=== PATIENT | female | born 1950 | race African-American/Black ===

== ENCOUNTER → 2018-08-31 | Outpatient (CLI) | payer MEDICARE, OTHER ==
[~2018-08-31] MED LIST: CHOL100013 PO; HYDR1TAB12 PO; IOHEXOL 240 MG/ML 50ML VIAL. PO ONE; IOHEXOL 300 MG/ML 100ML VIAL. IV ONE; METH-364 PO; PANT20TA2 PO
[2018-08-31 09:28] LABS: CREATININE 0.5 mg/dL (0.6-1.0); GFR 148.5
--- NOTE | 2018-08-31 11:02 | RAD ---
Examination: CT of the abdomen pelvis with oral and IV contrast HISTORY: History of intra-abdominal adhesions, bowel obstruction COMPARISON: None available Technique: Axial CT images of the abdomen pelvis were performed with oral and IV contrast. Coronal and sagittal reformats are performed Exposure: One or more of the following individualized dose reduction techniques were utilized for this examination: 1. Automated exposure control 2. Adjustment of the mA and/or kV according to patient size 3. Use of iterative reconstruction technique FINDINGS: The bibasilar lungs are clear. No evidence of free air identified in the abdomen. The visualized liver, spleen, adrenals grossly appears unremarkable. The gallbladder is mildly distended. The stomach is mildly distended. The visualized pancreas grossly appears unremarkable. The small bowel is nondilated. Feces and gas noted in the colon. Moderate-sized sigmoid colon diverticulum or postsurgical changes identified in the sigmoid colon. Multiple colonic diverticulosis identified. The urinary bladder is mildly distended. The bilateral kidneys enhance symmetrically. Cystic structures identified in the left kidney with the largest measuring 1.2 cm likely cyst. Mild aortic atherosclerosis. Moderate degenerative changes lumbar spine. Mild anterolisthesis of L4 on L5. IMPRESSION: 1. No acute intra-abdominal findings. 2. . Sigmoid colon diverticulosis. There is a moderate size sigmoid colon diverticulum or postsurgical changes identified at the site of prior surgery. Electronically signed by: Puma Alvarez MD (08/31/2018 10:59 AM) [place] [id number]
== END | disposition home or self-care (01) ==
LOC: CT 11:15
PROVIDERS: ATTEND Specialist
DX: K57.30 Diverticulosis of large intestine without perforation or abscess without bleeding (principal); M47.896 Other spondylosis, lumbar region; M43.16 Spondylolisthesis, lumbar region; I70.0 Atherosclerosis of aorta; N28.1 Cyst of kidney, acquired; K82.8 Other specified diseases of gallbladder; K31.89 Other diseases of stomach and duodenum
CPT/HCPCS: 36415; 74177; 82565; 84520; Q9966; Q9967

== ENCOUNTER 2018-09-06 07:30 | Inpatient (IN) | payer MEDICARE, OTHER ==
--- NOTE | 2018-09-05 13:08 | HP ---
ADMIT DATE: 09/06/2018 HISTORY OF PRESENT ILLNESS: The patient is admitted electively to the hospital for abdominal surgery for lysis of adhesions as she has had recurrent bowel obstructions. The history shows she has had recurrent bowel obstructions for years, about 1-2 per year, which required admission to the hospital. She has not had surgery for this, but this was more frequent in 2018 and she went in to the hospital 3-4 times for this. She wished to have this taken care of. In the past, she has had only small-bowel obstruction, which was most likely due to adhesions. This area of the colon surgery appears to be unremarkable and there is no evidence of colon problems. She has also had colonoscopy, which showed no colon problems. PAST MEDICAL HISTORY: Shows normal childhood diseases. She does not have heart disease, high blood pressure, diabetes or TB. She does take medicine for which she says is hyperthyroidism. She has taken this for years and has no difficulty. ALLERGIES: She has no allergies. PAST SURGICAL HISTORY: Surgical history does show that about 20 years ago, she had a perforated diverticulum, which had a laparotomy, resection of the involved bowel and later closure of the colostomy that was created at the initial surgery. Since that time, she has been doing well, except for the history of present illness with recurrent bowel obstructions of small bowel, which resolve spontaneously each time. She has had 2 knee replacements and many years ago, had a hysterectomy. FAMILY HISTORY: Noncontributory. She does have one child. SOCIAL HISTORY: Shows that she does smoke about half a pack of cigarettes per day, drinks socially and does use some marijuana. She does not use cocaine or other illicit drugs. REVIEW OF SYSTEMS: Negative, except for the knee pain which she has when it gets cold, but otherwise, is doing relatively well with no problems. She has had recurrent hospitalizations for small-bowel obstruction secondary to adhesions; she had 3-4 in 2018. PHYSICAL EXAMINATION: GENERAL: Shows an alert female, in no acute distress. HEAD, EARS, EYES, NOSE AND THROAT: Grossly normal. She does not have exophthalmus or other problems. NECK: The thyroid did not appear unremarkable. CHEST: Clear bilaterally to auscultation. HEART: Had a rate of 72 beats per minute and was regular and had a systolic murmur heard at the aortic area, about a 2/6. I do not hear diastolic flow. ABDOMEN: Negative, with no abdominal tenderness or pain and no evidence of herniations. She also has a scar of midline surgery and the scar of the colostomy in the left abdomen. IMPRESSION: 1. Degenerative arthritis, treated with bilateral knee replacements. 2. Post hysterectomy. 3. Status post bowel resection for perforated bowel. 4. Intermittent small-bowel obstructions. 5. Hyperthyroidism. KARLO MANCIA MD DR: ORI/chula JOB#: [id number] / [id number] JAYSON
[~2018-09-06] VITALS: Ht 177.8 cm; Wt 66.4 kg
[~2018-09-06 07:30] MED LIST changes: -HYDR1TAB12 PO; +HYDR1TAB13 PO; +HYDROmorphone 2 MG/ML VIAL IV PRN; -IOHEXOL 240 MG/ML 50ML VIAL. PO ONE; -IOHEXOL 300 MG/ML 100ML VIAL. IV ONE; +IV RINGERS,LACTATED 1000ML 1,000 ML IV SCH; +LIDOCAINE 1% PF 2 ML VIAL. ID PRN; +MORPHINE SULFATE 4 MG/ML VIAL. IV PRN; +ONDANSETRON PF 4 MG/2 ML VIAL. IV PRN; +PROCHLORPERAZINE 10 MG/2 ML VIAL. IV PRN; +fentaNYL PF VIAL 100 MCG/2 ML VIAL IV PRN
[2018-09-06 08:09] LABS: BASO % 0 % (0-3); EOS # 0.1 x10^3/uL (0.0-0.7); EOS % 1 % (0-3); HEMOGLOBIN 13.7 g/dL (12.0-15.5); LYMPH # 1.3 x10^3/uL (1.0-4.8); LYMPH % 16 % (24-48); MEAN CORPUSCULAR HEMOGLOBIN 28 pg (25-35); MEAN CORPUSCULAR HGB CONC 33 g/dL (31-37); MEAN CORPUSCULAR VOLUME 85 fL (79-100); MONO % 12 % (0-9); NEUT # 6.1 x10^3uL (1.8-7.7); NEUT % 71 % (31-73); PLATELET COUNT 180 x10^3/uL (140-400); RED BLOOD COUNT 4.93 x10^6/uL (3.50-5.40); RED CELL DISTRIBUTION WIDTH 15.2 % (11.5-14.5); WHITE BLOOD COUNT 8.5 x10^3/uL (4.0-11.0)
[2018-09-06 08:17] LABS: CALCIUM 8.4 mg/dL (8.5-10.1); CREATININE 0.6 mg/dL (0.6-1.0); GFR 120.3; POTASSIUM 3.3 mmol/L (3.5-5.1)
[2018-09-06] MEDS ORDERED: ROCURONIUM 50 MG/5 ML VIAL. ONE ×2 (08:22→10:49)
[2018-09-06] MEDS ORDERED: ONDANSETRON PF 4 MG/2 ML VIAL. ONE (08:22)
[2018-09-06] MEDS ORDERED: PROPOFOL 20 ML IV ONE (08:22)
[2018-09-06] MEDS ORDERED: LIDOCAINE 2% PF 5 ML VIAL. ONE (08:22)
[2018-09-06] MEDS ORDERED: DEXAMETHASONE SOD PHOS 20 MG/5 ML VIAL. ONE (08:22)
[2018-09-06 08:23] LABS: ALBUMIN 3.4 g/dL (3.4-5.0); ALBUMIN/GLOBULIN RATIO 1.1 (1.0-1.7); TOTAL BILIRUBIN 1.4 mg/dL (0.2-1.0); TOTAL PROTEIN 6.6 g/dL (6.4-8.2)
[2018-09-06] MEDS ORDERED: fentaNYL PF VIAL 100 MCG/2 ML VIAL ONE (08:23)
[2018-09-06 08:27] LABS: PROTHROMBIN TIME PATIENT 13.3 SEC (11.7-14.0)
[2018-09-06] MEDS ORDERED: MIDAZOLAM HCL/PF 2 MG/2 ML VIAL. ONE (08:30)
[2018-09-06] MEDS ORDERED: BUPIVACAINE-EPI 0.25%-1:200000 MPF 30 ML VIAL. ONE (09:26)
--- NOTE | 2018-09-06 09:27 | PDOC ---
SURGICAL PROGRESS NOTE Subjective Op Note: Surgeon.....................................Dong Pre op diag................................SBO with adhesions Post op diag..............................same with bowel perforation Anesthesia...............................general Procedure................................exp lap with enterolysis.and suture multiple perforations of bowel. Blood loss................................350cc Fluids.......................................see anesthesia sheet Drains......................................Large Bleak drain left abd and pelvis Condition.................................satisfactory Vital Signs Vital Signs Date Time Temp Pulse Resp B/P (MAP) Pulse Ox O2 Delivery O2 Flow Rate FiO2 09/06/18 08:07 98.5 68 20 156/79 96 Room Air 98.5 Labs Laboratory Tests Test 09/06/18 07:55 White Blood Count 8.5 x10^3/uL (4.0-11.0) Red Blood Count 4.93 x10^6/uL (3.50-5.40) Hemoglobin 13.7 g/dL (12.0-15.5) Hematocrit 42.0 % (36.0-47.0) Mean Corpuscular Volume 85 fL (79-100) Mean Corpuscular Hemoglobin 28 pg (25-35) Mean Corpuscular Hemoglobin Concent 33 g/dL (31-37) Red Cell Distribution Width 15.2 % (11.5-14.5) Platelet Count 180 x10^3/uL (140-400) Neutrophils (%) (Auto) 71 % (31-73) Lymphocytes (%) (Auto) 16 % (24-48) Monocytes (%) (Auto) 12 % (0-9) Eosinophils (%) (Auto) 1 % (0-3) Basophils (%) (Auto) 0 % (0-3) Neutrophils # (Auto) 6.1 x10^3uL (1.8-7.7) Lymphocytes # (Auto) 1.3 x10^3/uL (1.0-4.8) Monocytes # (Auto) 1.0 x10^3/uL (0.0-1.1) Eosinophils # (Auto) 0.1 x10^3/uL (0.0-0.7) Basophils # (Auto) 0.0 x10^3/uL (0.0-0.2) Prothrombin Time 13.3 SEC (11.7-14.0) Prothromb Time International Ratio 1.0 (0.8-1.1) Sodium Level 143 mmol/L (136-145) Potassium Level 3.3 mmol/L (3.5-5.1) Chloride Level 105 mmol/L (98-107) Carbon Dioxide Level 29 mmol/L (21-32) Anion Gap 9 (6-14) Blood Urea Nitrogen 8 mg/dL (7-20) Creatinine 0.6 mg/dL (0.6-1.0) Estimated GFR (Cockcroft-Gault) 120.3 BUN/Creatinine Ratio 13 (6-20) Glucose Level 95 mg/dL (70-99) Calcium Level 8.4 mg/dL (8.5-10.1) Total Bilirubin 1.4 mg/dL (0.2-1.0) Aspartate Amino Transf (AST/SGOT) 11 U/L (15-37) Alanine Aminotransferase (ALT/SGPT) 22 U/L (14-59) Alkaline Phosphatase 72 U/L (46-116) Total Protein 6.6 g/dL (6.4-8.2) Albumin 3.4 g/dL (3.4-5.0) Albumin/Globulin Ratio 1.1 (1.0-1.7) Laboratory Tests Test 09/06/18 07:55 White Blood Count 8.5 x10^3/uL (4.0-11.0) Red Blood Count 4.93 x10^6/uL (3.50-5.40) Hemoglobin 13.7 g/dL (12.0-15.5) Hematocrit 42.0 % (36.0-47.0) Mean Corpuscular Volume 85 fL (79-100) Mean Corpuscular Hemoglobin 28 pg (25-35) Mean Corpuscular Hemoglobin Concent 33 g/dL (31-37) Red Cell Distribution Width 15.2 % (11.5-14.5) Platelet Count 180 x10^3/uL (140-400) Neutrophils (%) (Auto) 71 % (31-73) Lymphocytes (%) (Auto) 16 % (24-48) Monocytes (%) (Auto) 12 % (0-9) Eosinophils (%) (Auto) 1 % (0-3) Basophils (%) (Auto) 0 % (0-3) Neutrophils # (Auto) 6.1 x10^3uL (1.8-7.7) Lymphocytes # (Auto) 1.3 x10^3/uL (1.0-4.8) Monocytes # (Auto) 1.0 x10^3/uL (0.0-1.1) Eosinophils # (Auto) 0.1 x10^3/uL (0.0-0.7) Basophils # (Auto) 0.0 x10^3/uL (0.0-0.2) Prothrombin Time 13.3 SEC (11.7-14.0) Prothromb Time International Ratio 1.0 (0.8-1.1) Sodium Level 143 mmol/L (136-145) Potassium Level 3.3 mmol/L (3.5-5.1) Chloride Level 105 mmol/L (98-107) Carbon Dioxide Level 29 mmol/L (21-32) Anion Gap 9 (6-14) Blood Urea Nitrogen 8 mg/dL (7-20) Creatinine 0.6 mg/dL (0.6-1.0) Estimated GFR (Cockcroft-Gault) 120.3 BUN/Creatinine Ratio 13 (6-20) Glucose Level 95 mg/dL (70-99) Calcium Level 8.4 mg/dL (8.5-10.1) Total Bilirubin 1.4 mg/dL (0.2-1.0) Aspartate Amino Transf (AST/SGOT) 11 U/L (15-37) Alanine Aminotransferase (ALT/SGPT) 22 U/L (14-59) Alkaline Phosphatase 72 U/L (46-116) Total Protein 6.6 g/dL (6.4-8.2) Albumin 3.4 g/dL (3.4-5.0) Albumin/Globulin Ratio 1.1 (1.0-1.7) KARLO MANCIA MD Sep 06, 2018 09:27
[2018-09-06] MEDS: NORMAL SALINE 35 ML, fentaNYL PF VIAL 250 MCG, ROPIVacaine 0.5% PF 10 ML in EPIDURAL 50 TV EPID PRN ×3 (10:20→19:58)
[2018-09-06] MEDS ORDERED: GLYCOPYRROLATE 1 MG/5 ML VIAL. ONE (11:19)
[2018-09-06] MEDS ORDERED: NEOSTIGMINE 10 MG/10 ML VIAL. ONE (11:19)
[2018-09-06] MEDS ORDERED: ROCURONIUM 100 MG/10 ML VIAL. ONE (11:51)
[2018-09-06] MEDS ORDERED: ceFAZolin SODIUM 1 GM VIAL ONE ×2 (13:27→13:28)
[2018-09-06] MEDS ORDERED: PHENYLEPHRINE 10 MG/ML VIAL. ONE (13:52)
[2018-09-06] MEDS ORDERED: SEVOFLURANE > 120 MINUTES. IH ONE (15:16)
[2018-09-06] MEDS ORDERED: ONDANSETRON PF 4 MG/2 ML VIAL. IV PRN (15:45)
[2018-09-06] MEDS ORDERED: 0.9 % SODIUM CHLORIDE 10 ML DISP.SYRIN. IV PRN (15:45)
[2018-09-06] MEDS: fentaNYL PF VIAL 100 MCG/2 ML VIAL IV PRN ×3 (16:08→17:22)
[2018-09-06] MEDS: POTASSIUM CL 20MEQ-0.45% NACL 1,000 ML IV SCH (18:27)
[2018-09-06] MEDS: ceFAZolin SODIUM 1 GM in IV DEXTROSE 5% 50 ML IV SCH (18:27)
[2018-09-06 19:00] VITALS: BP 134/74
[2018-09-06] MEDS: FAMOTIDINE 20 MG/2 ML VIAL IVP SCH (20:40)
[2018-09-06 22:24] VITALS: BP 126/69
[2018-09-07] MEDS: NORMAL SALINE 35 ML, fentaNYL PF VIAL 250 MCG, ROPIVacaine 0.5% PF 10 ML in EPIDURAL 50 TV EPID PRN ×4 (00:43→20:22)
[2018-09-07] MEDS: ceFAZolin SODIUM 1 GM in IV DEXTROSE 5% 50 ML IV SCH ×3 (01:37→17:32)
[2018-09-07 03:00] VITALS: BP 116/68
[2018-09-07 03:56] LABS: BASO % 0 % (0-3); EOS % 0 % (0-3); HEMATOCRIT 40.3 % (36.0-47.0); HEMOGLOBIN 13.2 g/dL (12.0-15.5); LYMPH # 0.5 x10^3/uL (1.0-4.8); LYMPH % 6 % (24-48); MEAN CORPUSCULAR HEMOGLOBIN 28 pg (25-35); MEAN CORPUSCULAR HGB CONC 33 g/dL (31-37); MEAN CORPUSCULAR VOLUME 84 fL (79-100); MONO # 0.9 x10^3/uL (0.0-1.1); MONO % 10 % (0-9); NEUT # 7.9 x10^3uL (1.8-7.7); NEUT % 84 % (31-73); PLATELET COUNT 183 x10^3/uL (140-400); RED BLOOD COUNT 4.77 x10^6/uL (3.50-5.40); RED CELL DISTRIBUTION WIDTH 15.6 % (11.5-14.5); WHITE BLOOD COUNT 9.4 x10^3/uL (4.0-11.0)
[2018-09-07 04:19] LABS: ALBUMIN 2.5 g/dL (3.4-5.0); ALBUMIN/GLOBULIN RATIO 0.9 (1.0-1.7); CALCIUM 7.2 mg/dL (8.5-10.1); CREATININE 0.6 mg/dL (0.6-1.0); GFR 120.3; POTASSIUM 4.3 mmol/L (3.5-5.1); TOTAL BILIRUBIN 1.4 mg/dL (0.2-1.0); TOTAL PROTEIN 5.3 g/dL (6.4-8.2)
[2018-09-07] MEDS: POTASSIUM CL 20MEQ-0.45% NACL 1,000 ML IV SCH ×2 (04:28→15:48)
[2018-09-07 07:00] VITALS: BP 130/89
[2018-09-07] MEDS: FAMOTIDINE 20 MG/2 ML VIAL IVP SCH ×2 (09:23→20:35)
--- NOTE | 2018-09-07 10:04 | PDOC ---
SURGICAL PROGRESS NOTE Subjective POD#1 Pt is doing well. Pt is laying in bed upon interview. Pt is doing well with much less than the expected post op pain. Pt denies flatus or bm. Pt is hungry and has been asking for ice cubes. Vs are surprisingly normal as is the wbc. Wound dressing in place and dry and she has a little discomfort from the NG. Will ambulate and remove NG. May remove hawkins per her request in 24 hours. Continue to support and await GI function. Vital Signs Vital Signs Date Time Temp Pulse Resp B/P (MAP) Pulse Ox O2 Delivery O2 Flow Rate FiO2 09/07/18 08:00 Room Air 09/07/18 07:00 98.9 76 18 130/89 (103) 98 98.9 09/07/18 05:19 2.0 I&O Intake and Output 09/07/18 06:59 Intake Total 2850 ml Output Total 2860 ml Balance -10 ml Intake Oral 0 ml IV Total 2850 ml Output Urine Total 2350 ml Gastric Drainage Total 10 ml Drainage Total 100 ml Estimated Blood Loss 400 ml General: Alert, Oriented X3, Cooperative, No acute distress Abdomen: Other (Tenderness in b/l abdomen, 5/10, crampy) Labs Laboratory Tests Test 09/06/18 07:55 09/07/18 03:10 White Blood Count 8.5 x10^3/uL (4.0-11.0) 9.4 x10^3/uL (4.0-11.0) Red Blood Count 4.93 x10^6/uL (3.50-5.40) 4.77 x10^6/uL (3.50-5.40) Hemoglobin 13.7 g/dL (12.0-15.5) 13.2 g/dL (12.0-15.5) Hematocrit 42.0 % (36.0-47.0) 40.3 % (36.0-47.0) Mean Corpuscular Volume 85 fL (79-100) 84 fL (79-100) Mean Corpuscular Hemoglobin 28 pg (25-35) 28 pg (25-35) Mean Corpuscular Hemoglobin Concent 33 g/dL (31-37) 33 g/dL (31-37) Red Cell Distribution Width 15.2 % (11.5-14.5) 15.6 % (11.5-14.5) Platelet Count 180 x10^3/uL (140-400) 183 x10^3/uL (140-400) Neutrophils (%) (Auto) 71 % (31-73) 84 % (31-73) Lymphocytes (%) (Auto) 16 % (24-48) 6 % (24-48) Monocytes (%) (Auto) 12 % (0-9) 10 % (0-9) Eosinophils (%) (Auto) 1 % (0-3) 0 % (0-3) Basophils (%) (Auto) 0 % (0-3) 0 % (0-3) Neutrophils # (Auto) 6.1 x10^3uL (1.8-7.7) 7.9 x10^3uL (1.8-7.7) Lymphocytes # (Auto) 1.3 x10^3/uL (1.0-4.8) 0.5 x10^3/uL (1.0-4.8) Monocytes # (Auto) 1.0 x10^3/uL (0.0-1.1) 0.9 x10^3/uL (0.0-1.1) Eosinophils # (Auto) 0.1 x10^3/uL (0.0-0.7) 0.0 x10^3/uL (0.0-0.7) Basophils # (Auto) 0.0 x10^3/uL (0.0-0.2) 0.0 x10^3/uL (0.0-0.2) Prothrombin Time 13.3 SEC (11.7-14.0) Prothromb Time International Ratio 1.0 (0.8-1.1) Sodium Level 143 mmol/L (136-145) 141 mmol/L (136-145) Potassium Level 3.3 mmol/L (3.5-5.1) 4.3 mmol/L (3.5-5.1) Chloride Level 105 mmol/L (98-107) 106 mmol/L (98-107) Carbon Dioxide Level 29 mmol/L (21-32) 27 mmol/L (21-32) Anion Gap 9 (6-14) 8 (6-14) Blood Urea Nitrogen 8 mg/dL (7-20) 10 mg/dL (7-20) Creatinine 0.6 mg/dL (0.6-1.0) 0.6 mg/dL (0.6-1.0) Estimated GFR (Cockcroft-Gault) 120.3 120.3 BUN/Creatinine Ratio 13 (6-20) 17 (6-20) Glucose Level 95 mg/dL (70-99) 150 mg/dL (70-99) Calcium Level 8.4 mg/dL (8.5-10.1) 7.2 mg/dL (8.5-10.1) Total Bilirubin 1.4 mg/dL (0.2-1.0) 1.4 mg/dL (0.2-1.0) Aspartate Amino Transf (AST/SGOT) 11 U/L (15-37) 14 U/L (15-37) Alanine Aminotransferase (ALT/SGPT) 22 U/L (14-59) 17 U/L (14-59) Alkaline Phosphatase 72 U/L (46-116) 51 U/L (46-116) Total Protein 6.6 g/dL (6.4-8.2) 5.3 g/dL (6.4-8.2) Albumin 3.4 g/dL (3.4-5.0) 2.5 g/dL (3.4-5.0) Albumin/Globulin Ratio 1.1 (1.0-1.7) 0.9 (1.0-1.7) Laboratory Tests Test 09/07/18 03:10 White Blood Count 9.4 x10^3/uL (4.0-11.0) Red Blood Count 4.77 x10^6/uL (3.50-5.40) Hemoglobin 13.2 g/dL (12.0-15.5) Hematocrit 40.3 % (36.0-47.0) Mean Corpuscular Volume 84 fL (79-100) Mean Corpuscular Hemoglobin 28 pg (25-35) Mean Corpuscular Hemoglobin Concent 33 g/dL (31-37) Red Cell Distribution Width 15.6 % (11.5-14.5) Platelet Count 183 x10^3/uL (140-400) Neutrophils (%) (Auto) 84 % (31-73) Lymphocytes (%) (Auto) 6 % (24-48) Monocytes (%) (Auto) 10 % (0-9) Eosinophils (%) (Auto) 0 % (0-3) Basophils (%) (Auto) 0 % (0-3) Neutrophils # (Auto) 7.9 x10^3uL (1.8-7.7) Lymphocytes # (Auto) 0.5 x10^3/uL (1.0-4.8) Monocytes # (Auto) 0.9 x10^3/uL (0.0-1.1) Eosinophils # (Auto) 0.0 x10^3/uL (0.0-0.7) Basophils # (Auto) 0.0 x10^3/uL (0.0-0.2) Sodium Level 141 mmol/L (136-145) Potassium Level 4.3 mmol/L (3.5-5.1) Chloride Level 106 mmol/L (98-107) Carbon Dioxide Level 27 mmol/L (21-32) Anion Gap 8 (6-14) Blood Urea Nitrogen 10 mg/dL (7-20) Creatinine 0.6 mg/dL (0.6-1.0) Estimated GFR (Cockcroft-Gault) 120.3 BUN/Creatinine Ratio 17 (6-20) Glucose Level 150 mg/dL (70-99) Calcium Level 7.2 mg/dL (8.5-10.1) Total Bilirubin 1.4 mg/dL (0.2-1.0) Aspartate Amino Transf (AST/SGOT) 14 U/L (15-37) Alanine Aminotransferase (ALT/SGPT) 17 U/L (14-59) Alkaline Phosphatase 51 U/L (46-116) Total Protein 5.3 g/dL (6.4-8.2) Albumin 2.5 g/dL (3.4-5.0) Albumin/Globulin Ratio 0.9 (1.0-1.7) KARLO MANCIA MD Sep 07, 2018 10:04
[2018-09-07 11:00] VITALS: BP 137/74
--- NOTE | 2018-09-07 13:07 | NUR ---
SS following for discharge planning. SS reviewed pt chart. Pt is from home and currently on room air. No discharge needs noted at this time. SS will continue to follow for pending discharge needs.
[2018-09-07 15:00] VITALS: BP 149/79
[2018-09-07 19:00] VITALS: BP 139/82
[2018-09-07 23:00] VITALS: BP 136/73
[2018-09-08] MEDS: NORMAL SALINE 35 ML, fentaNYL PF VIAL 250 MCG, ROPIVacaine 0.5% PF 10 ML in EPIDURAL 50 TV EPID PRN ×5 (01:15→20:20)
[2018-09-08 02:46] VITALS: BP 147/79
[2018-09-08] MEDS: POTASSIUM CL 20MEQ-0.45% NACL 1,000 ML IV SCH ×4 (02:50→20:28)
[2018-09-08 06:03] LABS: BASO % 0 % (0-3); EOS % 0 % (0-3); HEMATOCRIT 39.3 % (36.0-47.0); HEMOGLOBIN 12.9 g/dL (12.0-15.5); LYMPH # 1.5 x10^3/uL (1.0-4.8); LYMPH % 13 % (24-48); MEAN CORPUSCULAR HEMOGLOBIN 28 pg (25-35); MEAN CORPUSCULAR HGB CONC 33 g/dL (31-37); MEAN CORPUSCULAR VOLUME 86 fL (79-100); MONO # 1.3 x10^3/uL (0.0-1.1); MONO % 10 % (0-9); NEUT # 9.5 x10^3uL (1.8-7.7); NEUT % 77 % (31-73); PLATELET COUNT 176 x10^3/uL (140-400); RED BLOOD COUNT 4.57 x10^6/uL (3.50-5.40); RED CELL DISTRIBUTION WIDTH 15.4 % (11.5-14.5); WHITE BLOOD COUNT 12.3 x10^3/uL (4.0-11.0)
[2018-09-08 06:09] LABS: ALBUMIN 2.7 g/dL (3.4-5.0); ALBUMIN/GLOBULIN RATIO 0.8 (1.0-1.7); CREATININE 0.6 mg/dL (0.6-1.0); GFR 120.3; POTASSIUM 4.2 mmol/L (3.5-5.1); TOTAL BILIRUBIN 1.7 mg/dL (0.2-1.0); TOTAL PROTEIN 6.1 g/dL (6.4-8.2)
[2018-09-08 07:00] VITALS: BP 127/69
--- NOTE | 2018-09-08 09:27 | PDOC ---
SURGICAL PROGRESS NOTE Subjective POD#2 Pt is doing well with much less than the expected post op pain. Pt admits flatus, denies bm. Vs are surprisingly normal. WBC is increased today to 12.9. Wound dressing is clean, dry and intact. NG tube was removed, and banding was fit correctly. Mcdonough was removed. Continue to support. Will hold heparin as am reluctant with epidural and she is getting up and walking well. Will plan to start liquids 09/09/2018 if she continues to have GI function. Vital Signs Vital Signs Date Time Temp Pulse Resp B/P (MAP) Pulse Ox O2 Delivery O2 Flow Rate FiO2 09/08/18 07:00 98.7 74 16 127/69 (88) 94 Room Air 98.7 I&O Intake and Output 09/08/18 06:59 Output Total 690 ml Balance -690 ml Output Urine Total 600 ml Gastric Drainage Total 0 ml Drainage Total 90 ml # Voids 5 Labs Laboratory Tests Test 09/07/18 03:10 09/08/18 05:30 White Blood Count 9.4 x10^3/uL (4.0-11.0) 12.3 x10^3/uL (4.0-11.0) Red Blood Count 4.77 x10^6/uL (3.50-5.40) 4.57 x10^6/uL (3.50-5.40) Hemoglobin 13.2 g/dL (12.0-15.5) 12.9 g/dL (12.0-15.5) Hematocrit 40.3 % (36.0-47.0) 39.3 % (36.0-47.0) Mean Corpuscular Volume 84 fL (79-100) 86 fL (79-100) Mean Corpuscular Hemoglobin 28 pg (25-35) 28 pg (25-35) Mean Corpuscular Hemoglobin Concent 33 g/dL (31-37) 33 g/dL (31-37) Red Cell Distribution Width 15.6 % (11.5-14.5) 15.4 % (11.5-14.5) Platelet Count 183 x10^3/uL (140-400) 176 x10^3/uL (140-400) Neutrophils (%) (Auto) 84 % (31-73) 77 % (31-73) Lymphocytes (%) (Auto) 6 % (24-48) 13 % (24-48) Monocytes (%) (Auto) 10 % (0-9) 10 % (0-9) Eosinophils (%) (Auto) 0 % (0-3) 0 % (0-3) Basophils (%) (Auto) 0 % (0-3) 0 % (0-3) Neutrophils # (Auto) 7.9 x10^3uL (1.8-7.7) 9.5 x10^3uL (1.8-7.7) Lymphocytes # (Auto) 0.5 x10^3/uL (1.0-4.8) 1.5 x10^3/uL (1.0-4.8) Monocytes # (Auto) 0.9 x10^3/uL (0.0-1.1) 1.3 x10^3/uL (0.0-1.1) Eosinophils # (Auto) 0.0 x10^3/uL (0.0-0.7) 0.0 x10^3/uL (0.0-0.7) Basophils # (Auto) 0.0 x10^3/uL (0.0-0.2) 0.0 x10^3/uL (0.0-0.2) Sodium Level 141 mmol/L (136-145) 140 mmol/L (136-145) Potassium Level 4.3 mmol/L (3.5-5.1) 4.2 mmol/L (3.5-5.1) Chloride Level 106 mmol/L (98-107) 104 mmol/L (98-107) Carbon Dioxide Level 27 mmol/L (21-32) 24 mmol/L (21-32) Anion Gap 8 (6-14) 12 (6-14) Blood Urea Nitrogen 10 mg/dL (7-20) 9 mg/dL (7-20) Creatinine 0.6 mg/dL (0.6-1.0) 0.6 mg/dL (0.6-1.0) Estimated GFR (Cockcroft-Gault) 120.3 120.3 BUN/Creatinine Ratio 17 (6-20) 15 (6-20) Glucose Level 150 mg/dL (70-99) 76 mg/dL (70-99) Calcium Level 7.2 mg/dL (8.5-10.1) 8.0 mg/dL (8.5-10.1) Total Bilirubin 1.4 mg/dL (0.2-1.0) 1.7 mg/dL (0.2-1.0) Aspartate Amino Transf (AST/SGOT) 14 U/L (15-37) 13 U/L (15-37) Alanine Aminotransferase (ALT/SGPT) 17 U/L (14-59) 16 U/L (14-59) Alkaline Phosphatase 51 U/L (46-116) 58 U/L (46-116) Total Protein 5.3 g/dL (6.4-8.2) 6.1 g/dL (6.4-8.2) Albumin 2.5 g/dL (3.4-5.0) 2.7 g/dL (3.4-5.0) Albumin/Globulin Ratio 0.9 (1.0-1.7) 0.8 (1.0-1.7) Laboratory Tests Test 09/08/18 05:30 White Blood Count 12.3 x10^3/uL (4.0-11.0) Red Blood Count 4.57 x10^6/uL (3.50-5.40) Hemoglobin 12.9 g/dL (12.0-15.5) Hematocrit 39.3 % (36.0-47.0) Mean Corpuscular Volume 86 fL (79-100) Mean Corpuscular Hemoglobin 28 pg (25-35) Mean Corpuscular Hemoglobin Concent 33 g/dL (31-37) Red Cell Distribution Width 15.4 % (11.5-14.5) Platelet Count 176 x10^3/uL (140-400) Neutrophils (%) (Auto) 77 % (31-73) Lymphocytes (%) (Auto) 13 % (24-48) Monocytes (%) (Auto) 10 % (0-9) Eosinophils (%) (Auto) 0 % (0-3) Basophils (%) (Auto) 0 % (0-3) Neutrophils # (Auto) 9.5 x10^3uL (1.8-7.7) Lymphocytes # (Auto) 1.5 x10^3/uL (1.0-4.8) Monocytes # (Auto) 1.3 x10^3/uL (0.0-1.1) Eosinophils # (Auto) 0.0 x10^3/uL (0.0-0.7) Basophils # (Auto) 0.0 x10^3/uL (0.0-0.2) Sodium Level 140 mmol/L (136-145) Potassium Level 4.2 mmol/L (3.5-5.1) Chloride Level 104 mmol/L (98-107) Carbon Dioxide Level 24 mmol/L (21-32) Anion Gap 12 (6-14) Blood Urea Nitrogen 9 mg/dL (7-20) Creatinine 0.6 mg/dL (0.6-1.0) Estimated GFR (Cockcroft-Gault) 120.3 BUN/Creatinine Ratio 15 (6-20) Glucose Level 76 mg/dL (70-99) Calcium Level 8.0 mg/dL (8.5-10.1) Total Bilirubin 1.7 mg/dL (0.2-1.0) Aspartate Amino Transf (AST/SGOT) 13 U/L (15-37) Alanine Aminotransferase (ALT/SGPT) 16 U/L (14-59) Alkaline Phosphatase 58 U/L (46-116) Total Protein 6.1 g/dL (6.4-8.2) Albumin 2.7 g/dL (3.4-5.0) Albumin/Globulin Ratio 0.8 (1.0-1.7) KARLO MANCIA MD Sep 08, 2018 09:27
[2018-09-08] MEDS: FAMOTIDINE 20 MG/2 ML VIAL IVP SCH ×2 (10:19→20:26)
[2018-09-08 11:00] VITALS: BP 147/77
--- NOTE | 2018-09-08 13:24 | OP ---
DATE OF SURGERY: SURGEON: Alex Mancia MD PREOPERATIVE DIAGNOSIS: Recurrent small-bowel obstruction. POSTOPERATIVE DIAGNOSES: Recurrent small-bowel obstruction with massive intra-abdominal adhesions and perforated small bowel. ANESTHESIA: General. PROCEDURE: Exploratory laparotomy with massive enterolysis and suture of multiple small bowel perforations. TECHNIQUE: The patient was properly prepped and draped in routine fashion. She had had multiple small bowel episodes for years and the last 2-3 were worse, and she has been in the hospital about 3-4 times in the last 12 months for bowel obstructions, and she decided to have this removed. She has had numerous CT scans, all of which showed a lot of adhesions in the abdomen, mostly in the pelvis and multiple times it shows small bowel obstructions along with a KUB. As such, after she was properly prepped and draped in routine fashion, midline incision was made going through the old incision from above the umbilicus down to just above the pubis. We took pains to go in the upper part of the incision, got into the abdomen without intra-abdominal contents and then pulling up on the skin edges and the fascial edges making certain not to injure any intra-abdominal contents, open the wound entirely. There were numerous adhesions with the omentum being anterior, and this was pulled up and the adhesions to the bowel were massive. We lysed adhesions easily until we got down to the pelvis and left abdomen. That is where most of the adhesions had been as she had had a sigmoid colon resection for perforated diverticulum. She had a colostomy, had this closed and reanastomosed. Therefore she had a lot of adhesions there. We slowly used Metzenbaum scissors and just slowly mobilized all of the bowel. There were 2-3 areas where the small bowel was intimately attached to the colon and the surgical site. We had to slowly use finger dissection and just divide this. We did make small opening in the bowel on 2-3 occasions and these were sutured into transverse fashion with 4-0 Vicryl closing the seromuscular layer and Lembert sutures of 3-0 silk. They were all closed transversely, and there were no leaks post doing this. This was done 3-4 times for these perforations. Most of the bowel did well, was just where it was stuck, and there was dense scar tissue there. We did not staple it because of the scar tissue, and we did not think it would be the safest way to close these. We then slowly mobilized all of the small bowel, taking it out of the pelvis off the vaginal cuff and just slowly mobilizing it. There was no small bowel in the pelvis and that all was free. There was no evidence of obstruction. It should be noted that the small bowel was very convoluting and scarred in the left lower abdomen and into the pelvis. This having been done, we then inspected the bowel. There were no leaks, no other abnormalities and no problems, and the bowel was good and viable with no evidence of vascular compromise. The bowel was placed back in the abdomen and Seprafilm was used in layers so as to decrease adhesions. It was also placed in the pelvis before the bowel was laid back there. We then used layers of it and placed it under and over the omentum. The omentum was placed in its normal position with Seprafilm over it, and we then closed the abdomen. We made certain that we used #1 interrupted Prolene to approximate the fascia and then the subQ was irrigated with saline and approximated with interrupted Vicryl, and the skin was closed using a skin stapler. A sterile dressing was applied as the procedure was terminated. The blood loss was probably about 350-400 mL. Fluids given can be obtained from the anesthesia sheet. No drains were used and the condition of the patient was satisfactory as she was returned to the recovery room. ALEX MANCIA MD DR: ORI/chula JOB#: [id number] / [id number] JAYSON
[2018-09-08 15:00] VITALS: BP 135/76
[2018-09-08 19:00] VITALS: BP 139/79
[2018-09-08 23:00] VITALS: BP 134/69
[2018-09-09] MEDS: NORMAL SALINE 35 ML, fentaNYL PF VIAL 250 MCG, ROPIVacaine 0.5% PF 10 ML in EPIDURAL 50 TV EPID PRN ×4 (02:18→20:19)
[2018-09-09 03:00] VITALS: BP 132/70
[2018-09-09 05:06] LABS: BASO % 0 % (0-3); EOS # 0.2 x10^3/uL (0.0-0.7); EOS % 2 % (0-3); HEMATOCRIT 36.8 % (36.0-47.0); HEMOGLOBIN 11.7 g/dL (12.0-15.5); LYMPH % 8 % (24-48); MEAN CORPUSCULAR HEMOGLOBIN 27 pg (25-35); MEAN CORPUSCULAR HGB CONC 32 g/dL (31-37); MEAN CORPUSCULAR VOLUME 86 fL (79-100); MONO # 1.2 x10^3/uL (0.0-1.1); MONO % 10 % (0-9); NEUT # 9.5 x10^3uL (1.8-7.7); NEUT % 80 % (31-73); PLATELET COUNT 174 x10^3/uL (140-400); RED BLOOD COUNT 4.26 x10^6/uL (3.50-5.40); RED CELL DISTRIBUTION WIDTH 15.8 % (11.5-14.5)
[2018-09-09 05:14] LABS: PROTHROMBIN TIME PATIENT 14.1 SEC (11.7-14.0)
[2018-09-09 05:29] LABS: ALBUMIN 2.5 g/dL (3.4-5.0); ALBUMIN/GLOBULIN RATIO 0.8 (1.0-1.7); CALCIUM 8.2 mg/dL (8.5-10.1); CREATININE 0.5 mg/dL (0.6-1.0); GFR 148.5; POTASSIUM 4.5 mmol/L (3.5-5.1); TOTAL BILIRUBIN 1.7 mg/dL (0.2-1.0); TOTAL PROTEIN 5.7 g/dL (6.4-8.2)
[2018-09-09 07:00] VITALS: BP 143/76
[2018-09-09] MEDS: POTASSIUM CL 20MEQ-0.45% NACL 1,000 ML IV SCH (08:17)
[2018-09-09] MEDS: FAMOTIDINE 20 MG/2 ML VIAL IVP SCH ×2 (08:23→20:25)
--- NOTE | 2018-09-09 09:47 | PDOC ---
SURGICAL PROGRESS NOTE Subjective POD#3 Pt is doing well this morning. Pt denies any additional flatus. Vs are surprisingly normal. WBC level has decreased from yesterday, but is still increased today at 12.0. Wound dressing is clean, dry and intac and is changed and the drain removed as the output was les than 15cc/dayt. PT denies pain, which is reportedly controlled with epidural. Continue to support. Will hold the heparin as epidural problem happened yesterday and do not want any bleeding in the epidural [place] to start liquids 09/10/2018. Vital Signs Vital Signs Date Time Temp Pulse Resp B/P (MAP) Pulse Ox O2 Delivery O2 Flow Rate FiO2 09/09/18 08:51 20 Room Air 09/09/18 07:00 97.8 85 143/76 (98) 92 97.8 09/09/18 02:18 2.0 I&O Intake and Output 09/09/18 06:59 Intake Total 0 ml Balance 0 ml Intake Oral 0 ml # Voids 3 Labs Laboratory Tests Test 09/08/18 05:30 09/09/18 04:30 White Blood Count 12.3 x10^3/uL (4.0-11.0) 12.0 x10^3/uL (4.0-11.0) Red Blood Count 4.57 x10^6/uL (3.50-5.40) 4.26 x10^6/uL (3.50-5.40) Hemoglobin 12.9 g/dL (12.0-15.5) 11.7 g/dL (12.0-15.5) Hematocrit 39.3 % (36.0-47.0) 36.8 % (36.0-47.0) Mean Corpuscular Volume 86 fL (79-100) 86 fL (79-100) Mean Corpuscular Hemoglobin 28 pg (25-35) 27 pg (25-35) Mean Corpuscular Hemoglobin Concent 33 g/dL (31-37) 32 g/dL (31-37) Red Cell Distribution Width 15.4 % (11.5-14.5) 15.8 % (11.5-14.5) Platelet Count 176 x10^3/uL (140-400) 174 x10^3/uL (140-400) Neutrophils (%) (Auto) 77 % (31-73) 80 % (31-73) Lymphocytes (%) (Auto) 13 % (24-48) 8 % (24-48) Monocytes (%) (Auto) 10 % (0-9) 10 % (0-9) Eosinophils (%) (Auto) 0 % (0-3) 2 % (0-3) Basophils (%) (Auto) 0 % (0-3) 0 % (0-3) Neutrophils # (Auto) 9.5 x10^3uL (1.8-7.7) 9.5 x10^3uL (1.8-7.7) Lymphocytes # (Auto) 1.5 x10^3/uL (1.0-4.8) 1.0 x10^3/uL (1.0-4.8) Monocytes # (Auto) 1.3 x10^3/uL (0.0-1.1) 1.2 x10^3/uL (0.0-1.1) Eosinophils # (Auto) 0.0 x10^3/uL (0.0-0.7) 0.2 x10^3/uL (0.0-0.7) Basophils # (Auto) 0.0 x10^3/uL (0.0-0.2) 0.0 x10^3/uL (0.0-0.2) Sodium Level 140 mmol/L (136-145) 139 mmol/L (136-145) Potassium Level 4.2 mmol/L (3.5-5.1) 4.5 mmol/L (3.5-5.1) Chloride Level 104 mmol/L (98-107) 103 mmol/L (98-107) Carbon Dioxide Level 24 mmol/L (21-32) 22 mmol/L (21-32) Anion Gap 12 (6-14) 14 (6-14) Blood Urea Nitrogen 9 mg/dL (7-20) 7 mg/dL (7-20) Creatinine 0.6 mg/dL (0.6-1.0) 0.5 mg/dL (0.6-1.0) Estimated GFR (Cockcroft-Gault) 120.3 148.5 BUN/Creatinine Ratio 15 (6-20) 14 (6-20) Glucose Level 76 mg/dL (70-99) 47 mg/dL (70-99) Calcium Level 8.0 mg/dL (8.5-10.1) 8.2 mg/dL (8.5-10.1) Total Bilirubin 1.7 mg/dL (0.2-1.0) 1.7 mg/dL (0.2-1.0) Aspartate Amino Transf (AST/SGOT) 13 U/L (15-37) 15 U/L (15-37) Alanine Aminotransferase (ALT/SGPT) 16 U/L (14-59) 16 U/L (14-59) Alkaline Phosphatase 58 U/L (46-116) 54 U/L (46-116) Total Protein 6.1 g/dL (6.4-8.2) 5.7 g/dL (6.4-8.2) Albumin 2.7 g/dL (3.4-5.0) 2.5 g/dL (3.4-5.0) Albumin/Globulin Ratio 0.8 (1.0-1.7) 0.8 (1.0-1.7) Prothrombin Time 14.1 SEC (11.7-14.0) Prothromb Time International Ratio 1.1 (0.8-1.1) Laboratory Tests Test 09/09/18 04:30 White Blood Count 12.0 x10^3/uL (4.0-11.0) Red Blood Count 4.26 x10^6/uL (3.50-5.40) Hemoglobin 11.7 g/dL (12.0-15.5) Hematocrit 36.8 % (36.0-47.0) Mean Corpuscular Volume 86 fL (79-100) Mean Corpuscular Hemoglobin 27 pg (25-35) Mean Corpuscular Hemoglobin Concent 32 g/dL (31-37) Red Cell Distribution Width 15.8 % (11.5-14.5) Platelet Count 174 x10^3/uL (140-400) Neutrophils (%) (Auto) 80 % (31-73) Lymphocytes (%) (Auto) 8 % (24-48) Monocytes (%) (Auto) 10 % (0-9) Eosinophils (%) (Auto) 2 % (0-3) Basophils (%) (Auto) 0 % (0-3) Neutrophils # (Auto) 9.5 x10^3uL (1.8-7.7) Lymphocytes # (Auto) 1.0 x10^3/uL (1.0-4.8) Monocytes # (Auto) 1.2 x10^3/uL (0.0-1.1) Eosinophils # (Auto) 0.2 x10^3/uL (0.0-0.7) Basophils # (Auto) 0.0 x10^3/uL (0.0-0.2) Prothrombin Time 14.1 SEC (11.7-14.0) Prothromb Time International Ratio 1.1 (0.8-1.1) Sodium Level 139 mmol/L (136-145) Potassium Level 4.5 mmol/L (3.5-5.1) Chloride Level 103 mmol/L (98-107) Carbon Dioxide Level 22 mmol/L (21-32) Anion Gap 14 (6-14) Blood Urea Nitrogen 7 mg/dL (7-20) Creatinine 0.5 mg/dL (0.6-1.0) Estimated GFR (Cockcroft-Gault) 148.5 BUN/Creatinine Ratio 14 (6-20) Glucose Level 47 mg/dL (70-99) Calcium Level 8.2 mg/dL (8.5-10.1) Total Bilirubin 1.7 mg/dL (0.2-1.0) Aspartate Amino Transf (AST/SGOT) 15 U/L (15-37) Alanine Aminotransferase (ALT/SGPT) 16 U/L (14-59) Alkaline Phosphatase 54 U/L (46-116) Total Protein 5.7 g/dL (6.4-8.2) Albumin 2.5 g/dL (3.4-5.0) Albumin/Globulin Ratio 0.8 (1.0-1.7) KARLO MANCIA MD Sep 09, 2018 09:47
[2018-09-09 11:00] VITALS: BP 151/77
[2018-09-09] MEDS: POTASSIUM CL 40MEQ D5-0.45NACL 1,000 ML IV SCH ×2 (12:52→20:33)
[2018-09-09 15:00] VITALS: BP 155/82
[2018-09-09] MEDS ORDERED: ACETAMINOPHEN 650 MG SUPP.RECT. PR PRN (17:30)
[2018-09-09 19:00] VITALS: BP 125/75
[2018-09-09 23:00] VITALS: BP 120/72
[2018-09-10] MEDS: NORMAL SALINE 35 ML, fentaNYL PF VIAL 250 MCG, ROPIVacaine 0.5% PF 10 ML in EPIDURAL 50 TV EPID PRN ×4 (02:03→19:57)
[2018-09-10 03:00] VITALS: BP 123/72
[2018-09-10 04:38] LABS: BASO % 0 % (0-3); EOS # 0.2 x10^3/uL (0.0-0.7); EOS % 2 % (0-3); HEMATOCRIT 36.4 % (36.0-47.0); LYMPH # 1.1 x10^3/uL (1.0-4.8); LYMPH % 10 % (24-48); MEAN CORPUSCULAR HEMOGLOBIN 28 pg (25-35); MEAN CORPUSCULAR HGB CONC 33 g/dL (31-37); MEAN CORPUSCULAR VOLUME 85 fL (79-100); MONO # 1.3 x10^3/uL (0.0-1.1); MONO % 12 % (0-9); NEUT # 7.9 x10^3uL (1.8-7.7); NEUT % 76 % (31-73); PLATELET COUNT 186 x10^3/uL (140-400); RED BLOOD COUNT 4.29 x10^6/uL (3.50-5.40); RED CELL DISTRIBUTION WIDTH 15.9 % (11.5-14.5); WHITE BLOOD COUNT 10.4 x10^3/uL (4.0-11.0)
[2018-09-10 04:46] LABS: PROTHROMBIN TIME PATIENT 14.5 SEC (11.7-14.0)
[2018-09-10 05:33] LABS: ALBUMIN 2.4 g/dL (3.4-5.0); ALBUMIN/GLOBULIN RATIO 0.7 (1.0-1.7); CALCIUM 8.5 mg/dL (8.5-10.1); CREATININE 0.6 mg/dL (0.6-1.0); GFR 120.3; POTASSIUM 4.4 mmol/L (3.5-5.1); TOTAL BILIRUBIN 1.9 mg/dL (0.2-1.0); TOTAL PROTEIN 5.9 g/dL (6.4-8.2)
[2018-09-10] MEDS: POTASSIUM CL 40MEQ D5-0.45NACL 1,000 ML IV SCH ×2 (06:43→19:49)
[2018-09-10 07:00] VITALS: BP 130/78
[2018-09-10] MEDS: FAMOTIDINE 20 MG/2 ML VIAL IVP SCH ×2 (09:22→21:41)
--- NOTE | 2018-09-10 09:40 | PDOC ---
SURGICAL PROGRESS NOTE Subjective POD#4 Pt is doing well. Pt denies any additional flatus, but admits to gastric motility. Abdomen is soft and non-distended. Vs continue to be normal. Pt had a fever during the night prior, this was controlled by a suppository of tylenol. WBC count today is down to about normal at 10.4. Wound dressing is clean, dry and intact. PT denies pain, which is reportedly controlled with epidural. Continue to support. PT is on clear liquid diet. Ordered a liver panel to better understand increased bilirubin. Vital Signs Vital Signs Date Time Temp Pulse Resp B/P (MAP) Pulse Ox O2 Delivery O2 Flow Rate FiO2 09/10/18 07:40 20 Room Air 09/10/18 07:00 98.7 110 130/78 (95) 93 98.7 09/09/18 14:34 2.0 I&O Intake and Output 09/10/18 06:59 Output Total 300 ml Balance -300 ml Output Urine Total 300 ml # Voids 4 Labs Laboratory Tests Test 09/09/18 04:30 09/10/18 04:10 White Blood Count 12.0 x10^3/uL (4.0-11.0) 10.4 x10^3/uL (4.0-11.0) Red Blood Count 4.26 x10^6/uL (3.50-5.40) 4.29 x10^6/uL (3.50-5.40) Hemoglobin 11.7 g/dL (12.0-15.5) 12.0 g/dL (12.0-15.5) Hematocrit 36.8 % (36.0-47.0) 36.4 % (36.0-47.0) Mean Corpuscular Volume 86 fL (79-100) 85 fL (79-100) Mean Corpuscular Hemoglobin 27 pg (25-35) 28 pg (25-35) Mean Corpuscular Hemoglobin Concent 32 g/dL (31-37) 33 g/dL (31-37) Red Cell Distribution Width 15.8 % (11.5-14.5) 15.9 % (11.5-14.5) Platelet Count 174 x10^3/uL (140-400) 186 x10^3/uL (140-400) Neutrophils (%) (Auto) 80 % (31-73) 76 % (31-73) Lymphocytes (%) (Auto) 8 % (24-48) 10 % (24-48) Monocytes (%) (Auto) 10 % (0-9) 12 % (0-9) Eosinophils (%) (Auto) 2 % (0-3) 2 % (0-3) Basophils (%) (Auto) 0 % (0-3) 0 % (0-3) Neutrophils # (Auto) 9.5 x10^3uL (1.8-7.7) 7.9 x10^3uL (1.8-7.7) Lymphocytes # (Auto) 1.0 x10^3/uL (1.0-4.8) 1.1 x10^3/uL (1.0-4.8) Monocytes # (Auto) 1.2 x10^3/uL (0.0-1.1) 1.3 x10^3/uL (0.0-1.1) Eosinophils # (Auto) 0.2 x10^3/uL (0.0-0.7) 0.2 x10^3/uL (0.0-0.7) Basophils # (Auto) 0.0 x10^3/uL (0.0-0.2) 0.0 x10^3/uL (0.0-0.2) Prothrombin Time 14.1 SEC (11.7-14.0) 14.5 SEC (11.7-14.0) Prothromb Time International Ratio 1.1 (0.8-1.1) 1.2 (0.8-1.1) Sodium Level 139 mmol/L (136-145) 139 mmol/L (136-145) Potassium Level 4.5 mmol/L (3.5-5.1) 4.4 mmol/L (3.5-5.1) Chloride Level 103 mmol/L (98-107) 104 mmol/L (98-107) Carbon Dioxide Level 22 mmol/L (21-32) 24 mmol/L (21-32) Anion Gap 14 (6-14) 11 (6-14) Blood Urea Nitrogen 7 mg/dL (7-20) 6 mg/dL (7-20) Creatinine 0.5 mg/dL (0.6-1.0) 0.6 mg/dL (0.6-1.0) Estimated GFR (Cockcroft-Gault) 148.5 120.3 BUN/Creatinine Ratio 14 (6-20) 10 (6-20) Glucose Level 47 mg/dL (70-99) 131 mg/dL (70-99) Calcium Level 8.2 mg/dL (8.5-10.1) 8.5 mg/dL (8.5-10.1) Total Bilirubin 1.7 mg/dL (0.2-1.0) 1.9 mg/dL (0.2-1.0) Aspartate Amino Transf (AST/SGOT) 15 U/L (15-37) 13 U/L (15-37) Alanine Aminotransferase (ALT/SGPT) 16 U/L (14-59) 14 U/L (14-59) Alkaline Phosphatase 54 U/L (46-116) 58 U/L (46-116) Total Protein 5.7 g/dL (6.4-8.2) 5.9 g/dL (6.4-8.2) Albumin 2.5 g/dL (3.4-5.0) 2.4 g/dL (3.4-5.0) Albumin/Globulin Ratio 0.8 (1.0-1.7) 0.7 (1.0-1.7) Laboratory Tests Test 09/10/18 04:10 White Blood Count 10.4 x10^3/uL (4.0-11.0) Red Blood Count 4.29 x10^6/uL (3.50-5.40) Hemoglobin 12.0 g/dL (12.0-15.5) Hematocrit 36.4 % (36.0-47.0) Mean Corpuscular Volume 85 fL (79-100) Mean Corpuscular Hemoglobin 28 pg (25-35) Mean Corpuscular Hemoglobin Concent 33 g/dL (31-37) Red Cell Distribution Width 15.9 % (11.5-14.5) Platelet Count 186 x10^3/uL (140-400) Neutrophils (%) (Auto) 76 % (31-73) Lymphocytes (%) (Auto) 10 % (24-48) Monocytes (%) (Auto) 12 % (0-9) Eosinophils (%) (Auto) 2 % (0-3) Basophils (%) (Auto) 0 % (0-3) Neutrophils # (Auto) 7.9 x10^3uL (1.8-7.7) Lymphocytes # (Auto) 1.1 x10^3/uL (1.0-4.8) Monocytes # (Auto) 1.3 x10^3/uL (0.0-1.1) Eosinophils # (Auto) 0.2 x10^3/uL (0.0-0.7) Basophils # (Auto) 0.0 x10^3/uL (0.0-0.2) Prothrombin Time 14.5 SEC (11.7-14.0) Prothromb Time International Ratio 1.2 (0.8-1.1) Sodium Level 139 mmol/L (136-145) Potassium Level 4.4 mmol/L (3.5-5.1) Chloride Level 104 mmol/L (98-107) Carbon Dioxide Level 24 mmol/L (21-32) Anion Gap 11 (6-14) Blood Urea Nitrogen 6 mg/dL (7-20) Creatinine 0.6 mg/dL (0.6-1.0) Estimated GFR (Cockcroft-Gault) 120.3 BUN/Creatinine Ratio 10 (6-20) Glucose Level 131 mg/dL (70-99) Calcium Level 8.5 mg/dL (8.5-10.1) Total Bilirubin 1.9 mg/dL (0.2-1.0) Aspartate Amino Transf (AST/SGOT) 13 U/L (15-37) Alanine Aminotransferase (ALT/SGPT) 14 U/L (14-59) Alkaline Phosphatase 58 U/L (46-116) Total Protein 5.9 g/dL (6.4-8.2) Albumin 2.4 g/dL (3.4-5.0) Albumin/Globulin Ratio 0.7 (1.0-1.7) KARLO MANCIA MD Sep 10, 2018 09:40
[2018-09-10 11:00] VITALS: BP 137/77
[2018-09-10 15:00] VITALS: BP 127/76
[2018-09-10 19:00] VITALS: BP 148/91
[2018-09-10] MEDS ORDERED: ACETAMINOPHEN 325 MG TABLET. PO PRN (19:45)
[2018-09-10] MEDS ORDERED: ZOLPIDEM 5 MG TABLET. PO PRN (21:15)
[2018-09-10 23:00] VITALS: BP 133/76
[2018-09-11] MEDS: NORMAL SALINE 35 ML, fentaNYL PF VIAL 250 MCG, ROPIVacaine 0.5% PF 10 ML in EPIDURAL 50 TV EPID PRN ×2 (01:36→07:54)
[2018-09-11 03:00] VITALS: BP 107/80
[2018-09-11 06:40] LABS: ALBUMIN 2.4 g/dL (3.4-5.0); ALBUMIN/GLOBULIN RATIO 0.6 (1.0-1.7); CALCIUM 8.7 mg/dL (8.5-10.1); CREATININE 0.5 mg/dL (0.6-1.0); DIRECT BILIRUBIN 0.3 mg/dL (0.0-0.2); GFR 148.5; POTASSIUM 4.3 mmol/L (3.5-5.1); TOTAL BILIRUBIN 1.4 mg/dL (0.2-1.0); TOTAL PROTEIN 6.4 g/dL (6.4-8.2)
[2018-09-11 07:00] VITALS: BP 128/71
[2018-09-11 07:02] LABS: BASO % 0 % (0-3); EOS # 0.3 x10^3/uL (0.0-0.7); EOS % 3 % (0-3); HEMATOCRIT 34.6 % (36.0-47.0); HEMOGLOBIN 11.5 g/dL (12.0-15.5); LYMPH # 1.2 x10^3/uL (1.0-4.8); LYMPH % 12 % (24-48); MEAN CORPUSCULAR HEMOGLOBIN 28 pg (25-35); MEAN CORPUSCULAR HGB CONC 33 g/dL (31-37); MEAN CORPUSCULAR VOLUME 85 fL (79-100); MONO # 1.2 x10^3/uL (0.0-1.1); MONO % 12 % (0-9); NEUT # 7.4 x10^3uL (1.8-7.7); NEUT % 73 % (31-73); PLATELET COUNT 212 x10^3/uL (140-400); RED BLOOD COUNT 4.05 x10^6/uL (3.50-5.40); RED CELL DISTRIBUTION WIDTH 15.8 % (11.5-14.5); WHITE BLOOD COUNT 10.2 x10^3/uL (4.0-11.0)
[2018-09-11] MEDS: FAMOTIDINE 20 MG/2 ML VIAL IVP SCH (07:48)
--- NOTE | 2018-09-11 08:45 | PDOC ---
SURGICAL PROGRESS NOTE Subjective POD#5 Pt is doing well. Pt is currently on clear liquid diet. Pt admits to flatus, but denies BM. Abdomen is soft and non-distended. Vs continue to be normal. WBC count today is down to about normal at 10.2. Wound dressing is clean, dry and intact. Pt's epidural was taken out prior to interview. Pt denies pain currently. Pt admits to sleep last night, which she attributes to resuming ambien. Continue to support. Vital Signs Vital Signs Date Time Temp Pulse Resp B/P (MAP) Pulse Ox O2 Delivery O2 Flow Rate FiO2 09/11/18 07:54 Room Air 09/11/18 07:00 98.8 86 16 128/71 (90) 96 98.8 I&O Intake and Output 09/11/18 06:59 Intake Total 490 ml Output Total 300 ml Balance 190 ml Intake Oral 490 ml Output Urine Total 300 ml # Voids 7 Labs Laboratory Tests Test 09/10/18 04:10 09/11/18 05:00 White Blood Count 10.4 x10^3/uL (4.0-11.0) 10.2 x10^3/uL (4.0-11.0) Red Blood Count 4.29 x10^6/uL (3.50-5.40) 4.05 x10^6/uL (3.50-5.40) Hemoglobin 12.0 g/dL (12.0-15.5) 11.5 g/dL (12.0-15.5) Hematocrit 36.4 % (36.0-47.0) 34.6 % (36.0-47.0) Mean Corpuscular Volume 85 fL (79-100) 85 fL (79-100) Mean Corpuscular Hemoglobin 28 pg (25-35) 28 pg (25-35) Mean Corpuscular Hemoglobin Concent 33 g/dL (31-37) 33 g/dL (31-37) Red Cell Distribution Width 15.9 % (11.5-14.5) 15.8 % (11.5-14.5) Platelet Count 186 x10^3/uL (140-400) 212 x10^3/uL (140-400) Neutrophils (%) (Auto) 76 % (31-73) 73 % (31-73) Lymphocytes (%) (Auto) 10 % (24-48) 12 % (24-48) Monocytes (%) (Auto) 12 % (0-9) 12 % (0-9) Eosinophils (%) (Auto) 2 % (0-3) 3 % (0-3) Basophils (%) (Auto) 0 % (0-3) 0 % (0-3) Neutrophils # (Auto) 7.9 x10^3uL (1.8-7.7) 7.4 x10^3uL (1.8-7.7) Lymphocytes # (Auto) 1.1 x10^3/uL (1.0-4.8) 1.2 x10^3/uL (1.0-4.8) Monocytes # (Auto) 1.3 x10^3/uL (0.0-1.1) 1.2 x10^3/uL (0.0-1.1) Eosinophils # (Auto) 0.2 x10^3/uL (0.0-0.7) 0.3 x10^3/uL (0.0-0.7) Basophils # (Auto) 0.0 x10^3/uL (0.0-0.2) 0.0 x10^3/uL (0.0-0.2) Prothrombin Time 14.5 SEC (11.7-14.0) Prothromb Time International Ratio 1.2 (0.8-1.1) Sodium Level 139 mmol/L (136-145) 141 mmol/L (136-145) Potassium Level 4.4 mmol/L (3.5-5.1) 4.3 mmol/L (3.5-5.1) Chloride Level 104 mmol/L (98-107) 104 mmol/L (98-107) Carbon Dioxide Level 24 mmol/L (21-32) 26 mmol/L (21-32) Anion Gap 11 (6-14) 11 (6-14) Blood Urea Nitrogen 6 mg/dL (7-20) 4 mg/dL (7-20) Creatinine 0.6 mg/dL (0.6-1.0) 0.5 mg/dL (0.6-1.0) Estimated GFR (Cockcroft-Gault) 120.3 148.5 BUN/Creatinine Ratio 10 (6-20) 8 (6-20) Glucose Level 131 mg/dL (70-99) 129 mg/dL (70-99) Calcium Level 8.5 mg/dL (8.5-10.1) 8.7 mg/dL (8.5-10.1) Total Bilirubin 1.9 mg/dL (0.2-1.0) 1.4 mg/dL (0.2-1.0) Aspartate Amino Transf (AST/SGOT) 13 U/L (15-37) 11 U/L (15-37) Alanine Aminotransferase (ALT/SGPT) 14 U/L (14-59) 13 U/L (14-59) Alkaline Phosphatase 58 U/L (46-116) 63 U/L (46-116) Total Protein 5.9 g/dL (6.4-8.2) 6.4 g/dL (6.4-8.2) Albumin 2.4 g/dL (3.4-5.0) 2.4 g/dL (3.4-5.0) Albumin/Globulin Ratio 0.7 (1.0-1.7) 0.6 (1.0-1.7) Direct Bilirubin 0.3 mg/dL (0.0-0.2) Laboratory Tests Test 09/11/18 05:00 White Blood Count 10.2 x10^3/uL (4.0-11.0) Red Blood Count 4.05 x10^6/uL (3.50-5.40) Hemoglobin 11.5 g/dL (12.0-15.5) Hematocrit 34.6 % (36.0-47.0) Mean Corpuscular Volume 85 fL (79-100) Mean Corpuscular Hemoglobin 28 pg (25-35) Mean Corpuscular Hemoglobin Concent 33 g/dL (31-37) Red Cell Distribution Width 15.8 % (11.5-14.5) Platelet Count 212 x10^3/uL (140-400) Neutrophils (%) (Auto) 73 % (31-73) Lymphocytes (%) (Auto) 12 % (24-48) Monocytes (%) (Auto) 12 % (0-9) Eosinophils (%) (Auto) 3 % (0-3) Basophils (%) (Auto) 0 % (0-3) Neutrophils # (Auto) 7.4 x10^3uL (1.8-7.7) Lymphocytes # (Auto) 1.2 x10^3/uL (1.0-4.8) Monocytes # (Auto) 1.2 x10^3/uL (0.0-1.1) Eosinophils # (Auto) 0.3 x10^3/uL (0.0-0.7) Basophils # (Auto) 0.0 x10^3/uL (0.0-0.2) Sodium Level 141 mmol/L (136-145) Potassium Level 4.3 mmol/L (3.5-5.1) Chloride Level 104 mmol/L (98-107) Carbon Dioxide Level 26 mmol/L (21-32) Anion Gap 11 (6-14) Blood Urea Nitrogen 4 mg/dL (7-20) Creatinine 0.5 mg/dL (0.6-1.0) Estimated GFR (Cockcroft-Gault) 148.5 BUN/Creatinine Ratio 8 (6-20) Glucose Level 129 mg/dL (70-99) Calcium Level 8.7 mg/dL (8.5-10.1) Total Bilirubin 1.4 mg/dL (0.2-1.0) Direct Bilirubin 0.3 mg/dL (0.0-0.2) Aspartate Amino Transf (AST/SGOT) 11 U/L (15-37) Alanine Aminotransferase (ALT/SGPT) 13 U/L (14-59) Alkaline Phosphatase 63 U/L (46-116) Total Protein 6.4 g/dL (6.4-8.2) Albumin 2.4 g/dL (3.4-5.0) Albumin/Globulin Ratio 0.6 (1.0-1.7) KARLO MANCIA MD Sep 11, 2018 08:45
[2018-09-11] MEDS: POTASSIUM CL 40MEQ D5-0.45NACL 1,000 ML IV SCH (09:56)
[2018-09-11] MEDS: HYDROcodone/APAP 7.5/325MG 1 TAB TABLET PO PRN ×2 (09:56→13:56)
[2018-09-11 11:10] VITALS: BP 116/78
[2018-09-11] MEDS ORDERED: ACETAMINOPHEN/CODEINE 300/30MG TABLET. PO ONE (13:00)
--- NOTE | 2018-09-11 14:24 | NUR ---
Prescription for percadan was directly handled to patient by Dr. Umana.
--- NOTE | 2018-09-11 14:40 | NUR ---
Discharge instructions given to pt. Answered questions and concerns. Dressing supplies provided to pt as well. Pt dc home by wc to entrance accompanied by her sister.
--- NOTE | 2018-10-11 20:31 | DS ---
DATE OF DISCHARGE: 09/11/2018 HOSPITAL COURSE: The patient was admitted with a history of recurrent small bowel obstructions and with numerous hospitalizations 3 or 4 in the last 12 months. She has decided to have this repaired and in fact on the day of surgery did have a very extensive enterolysis with release of the adhesions mostly in the left abdomen where she had had a perforated diverticulum, colon resection, colostomy and closure. She has also had a HACK DRIVER surgery. The surgery was quite extensive and it took about 5 or 6 hours as the adhesions were dense and very difficult. A number of enterotomies had to be closed with no spillage. Postoperatively, she did well. She had no fever and no other difficulties. The wound healed well and after about 2 or 3 days, she had GI function and in fact was taking clear liquids and then advanced to a regular diet. The wound healed without complications. There was no evidence of infection or other problems and no seromas. She was instructed on no strenuous activity and that she did have a binder. Her epidural that she had did work well and she had no problems on that. Her lab data was normal. She had no fever and therefore, she was discharged without difficulties and I will see her in the office and remove the rainer in about 3-4 days after the discharge day. IMPRESSION: 1. Massive intra-abdominal adhesions with recurrent small bowel obstructions. 2. Perforation of gastrointestinal tract with closure. KARLO MANCIA MD DR: ORI/chula JOB#: [id number] / [id number] JAYSON
== END 2018-09-11 14:40 | disposition home or self-care (01) | DRG 329 ==
LOC: OPSVCIP 07:30 → EDUNIT# 09:00 → 4 NORTH 18:16
PROVIDERS: ADMIT Specialist; ATTEND Specialist
PROC: 0DN80ZZ Release Small Intestine, Open Approach (ICD-10-PCS; principal; 2018-09-08)
PROC: 0DQ80ZZ Repair Small Intestine, Open Approach (ICD-10-PCS; 2018-09-08)
DX: K56.50 Intestinal adhesions [bands], unspecified as to partial versus complete obstruction (principal); K63.1 Perforation of intestine (nontraumatic); E05.90 Thyrotoxicosis, unspecified without thyrotoxic crisis or storm; F17.210 Nicotine dependence, cigarettes, uncomplicated; Z96.653 Presence of artificial knee joint, bilateral; Z90.49 Acquired absence of other specified parts of digestive tract; Z90.710 Acquired absence of both cervix and uterus
CPT/HCPCS: 36415; 80053; 80076; 85025; 85610; A7015; C1765; J0690; J0780; J1100; J2001; J2250; J2405; J2704; J2710; J2795; J3010; J3490; J7042; J7120

== ENCOUNTER → 2019-09-21 | Outpatient (CLI) | payer MEDICARE, OTHER ==
[~2019-09-21] MED LIST changes: -HYDROmorphone 2 MG/ML VIAL IV PRN; -IV RINGERS,LACTATED 1000ML 1,000 ML IV SCH; -LIDOCAINE 1% PF 2 ML VIAL. ID PRN; -MORPHINE SULFATE 4 MG/ML VIAL. IV PRN; -ONDANSETRON PF 4 MG/2 ML VIAL. IV PRN; -PROCHLORPERAZINE 10 MG/2 ML VIAL. IV PRN; -fentaNYL PF VIAL 100 MCG/2 ML VIAL IV PRN
[2019-09-21 11:44] LABS: ALBUMIN 4.4 g/dL (3.4-5.0); ALBUMIN/GLOBULIN RATIO 1.5 (1.0-1.7); CALCIUM 9.2 mg/dL (8.5-10.1); CREATININE 0.9 mg/dL (0.6-1.0); GFR 75.1; POTASSIUM 4.6 mmol/L (3.5-5.1); TOTAL BILIRUBIN 1.7 mg/dL (0.2-1.0); TOTAL PROTEIN 7.4 g/dL (6.4-8.2)
[2019-09-21 11:50] LABS: BASO % 0 % (0-3); EOS # 0.1 x10^3/uL (0.0-0.7); EOS % 2 % (0-3); HEMATOCRIT 44.3 % (36.0-47.0); HEMOGLOBIN 14.7 g/dL (12.0-15.5); LYMPH # 1.4 x10^3/uL (1.0-4.8); LYMPH % 25 % (24-48); MEAN CORPUSCULAR HEMOGLOBIN 29 pg (25-35); MEAN CORPUSCULAR HGB CONC 33 g/dL (31-37); MEAN CORPUSCULAR VOLUME 88 fL (79-100); MONO # 0.5 x10^3/uL (0.0-1.1); MONO % 9 % (0-9); NEUT # 3.5 x10^3/uL (1.8-7.7); NEUT % 64 % (31-73); PLATELET COUNT 276 x10^3/uL (140-400); RED BLOOD COUNT 5.01 x10^6/uL (3.50-5.40); RED CELL DISTRIBUTION WIDTH 17.8 % (11.5-14.5); WHITE BLOOD COUNT 5.5 x10^3/uL (4.0-11.0)
--- NOTE | 2019-09-21 13:15 | RAD ---
EXAM: Thyroid Ultrasound INDICATION: Goiter ? TECHNIQUE: Real-time ultrasound of the thyroid was performed with permanent freeze-frame documentation. COMPARISON: None available ? FINDINGS: THYROID: Thyroid gland is heterogeneous in echogenicity. ? Right Lobe: 11.8 x 3.8 x 2.7 cm. ? Left Lobe: 9.3 x 3.2 x 3.0 cm. ? Isthmus: 1.3 cm. ?? Inferior pole right thyroid primarily solid spongiform nodule measuring 2.7 x 3.5 x 2.2 cm is present. Immediately inferior to the is a second, spongiform nodule measuring 2.2 x 2.9 x 2.3 cm. There is increased vascularity in the right thyroid lobe. In the left thyroid lobe, the superior pole 1.8 x 1.8 x 1.4 cm spongiform nodule is present. In the inferior pole, a predominantly cystic, dominant mixed cystic and solid nodule is present measuring 4.0 x 3.8 x 2.9 cm. There is increased vascularity in the left thyroid gland. All nodules show smooth margins and show variable spongiform, mixed cystic and solid composition with no calcifications, hypoechoic components and they are not tolerated than wide. ? OTHER: No evidence of adjacent cervical adenopathy. ? IMPRESSION: ? Multinodular thyroid goiter with generalized increased vascularity. Correlate with thyroid function tests. Nodules are not suspicious (TI-RADS 2) based on sonographic morphology Electronically signed by: Jhonny Dickey MD (09/21/2019 1:12 PM) [id number]
[2019-09-21 16:09] LABS: THYROXINE 4.6 ug/dL (4.5-12.0)
== END | disposition home or self-care (01) ==
LOC: US 15:49
PROVIDERS: ATTEND Specialist
DX: E04.2 Nontoxic multinodular goiter (principal)
CPT/HCPCS: 36415; 76536; 80053; 84436; 84443; 84480; 85025

== ENCOUNTER → 2020-03-28 | Outpatient (CLI) | payer MEDICARE, OTHER ==
[2020-03-28 14:07] LABS: BASO % 0 % (0-3); EOS % 1 % (0-3); HEMATOCRIT 42.9 % (36.0-47.0); HEMOGLOBIN 14.2 g/dL (12.0-15.5); LYMPH % 22 % (24-48); MEAN CORPUSCULAR HEMOGLOBIN 31 pg (25-35); MEAN CORPUSCULAR HGB CONC 33 g/dL (31-37); MEAN CORPUSCULAR VOLUME 92 fL (79-100); MONO # 0.7 x10^3/uL (0.0-1.1); MONO % 15 % (0-9); NEUT % 62 % (31-73); PLATELET COUNT 176 x10^3/uL (140-400); RED BLOOD COUNT 4.67 x10^6/uL (3.50-5.40); RED CELL DISTRIBUTION WIDTH 14.8 % (11.5-14.5); WHITE BLOOD COUNT 4.8 x10^3/uL (4.0-11.0)
[2020-03-28 14:25] LABS: ALBUMIN 3.8 g/dL (3.4-5.0); ALBUMIN/GLOBULIN RATIO 1.1 (1.0-1.7); CALCIUM 9.1 mg/dL (8.5-10.1); CREATININE 0.6 mg/dL (0.6-1.0); GFR 119.9; POTASSIUM 3.7 mmol/L (3.5-5.1); TOTAL BILIRUBIN 1.5 mg/dL (0.2-1.0); TOTAL PROTEIN 7.2 g/dL (6.4-8.2)
--- NOTE | 2020-03-28 19:16 | RAD ---
Examination: 1. Right thyroid FNA biopsy. 2. Left thyroid FNA biopsy. INDICATION: 69-year-old woman with long-standing hyperthyroidism in the setting of a multinodular goiter is being considered for ablative therapy. She had a thyroid nuclear medicine scan (under a prior name of Selene Small) that showed photopenic defects in the superior right thyroid lobe and in the inferior left thyroid lobe, suggesting cold nodules. Tissue sampling requested to confirm benign histology prior to definitive therapy. COMPARISON: Thyroid ultrasound of 09/21/2019, thyroid uptake and scan of 07/31/2019 TECHNIQUE AND FINDINGS: Informed consent was obtained and an appropriate procedural pause observed. In separate, successive procedures with fresh sterile equipment, fine-needle aspiration biopsy of first the superior right thyroid lobe was performed (in 4 passes) and subsequently of the 4 cm inferior left thyroid nodule (also in 4 passes) using 25-gauge needles which were handed to the echo vascular technologist to confirm tissue adequacy. The superior right thyroid lobe targeted for biopsy had less distinct nodularity to it but measured approximately 4 cm in correlation with the prior thyroid ultrasound. Patient tolerated the procedures without incident. Puncture sites were dressed and postprocedure instructions were reviewed prior to patient discharge from the imaging suite. She will follow up with her referring surgeon. IMPRESSION: Successful, uncomplicated fine-needle aspiration biopsy of the superior right thyroid lobe and of the inferior left thyroid lobe where cold nodules on prior thyroid uptake and scan were identified. Electronically signed by: Jhonny Dickey MD (03/28/2020 7:13 PM) [id number]
--- NOTE | 2020-03-31 16:06 | PATHOLOGY ---
Note [facility] Accession Number: [id number] TESTS RESULT FLAG UNITS REF RANGE LAB Clinician Provided Cytology Information No. of containers..01 Other (Miscellaneous) Source: RT SUP THYROID DIAGNOSIS: RT SUP THYROID NEGATIVE FOR MALIGNANT CELLS. COLLOID IS PRESENT. HYPOCELLULAR SMEAR(S) CONSIDERED ONLY MARGINALLY ADEQUATE FOR VALID CYTOPATHOLOGIC INTERPRETATION THIS INTERPRETATION INCLUDES EVALUATION OF A CELL BLOCK. COMMENT, POORLY CELLULAR WITH FEW THYROID FOLLICULAR CELLS ADMIXED WITH MACROPHAGES AND COLLOID MOST LIKELY CONSISTENT WITH ADENOMATOID NODULE. HOWEVER THE MATERIAL ASPIRATED MAY NOT BE BUSINESS UNIT MANAGER. SUGGEST CLINICAL CORRELATION. Signed out by: Dashawn Patino MD, Pathologist NPI- [id number] Performed by: Maira Washington, Newspaper Press Operator Apprentice ([facility]) Gross description: 01 25ML, RED, 1TP, 1CB /LCS 03/31/2020 0700 Local FLAG LEGEND: L-Low Normal,H-High Normal,LL-Alert Low,HH-Alert High <-Panic Low,>-Panic High,A-Abnormal,AA-Critical Abnormal Performed at: [facility] [address] [place] [address] [place] [address] Kash Gastelum MD, 02 YUAN [facility] [address] [address] Charan Mcdaniel MD, Specimen Comment: A courtesy copy of this report has been sent to [phone] Specimen Comment: [phone], Specimen Comment: Report sent to DR PRUITT,DR MANCIA / DR VYAS Specimen Comment: A duplicate report has been generated due to demographic updates. Performed at: [address], [place], [place] [id number] MD Kash Gastelum MD Phone: [phone]
--- NOTE | 2020-03-31 16:06 | PATHOLOGY ---
Note [facility] Accession Number: [id number] TESTS RESULT FLAG UNITS REF RANGE LAB Clinician Provided Cytology Information No. of containers..01 Other (Miscellaneous) Source: LT INF THYROID DIAGNOSIS: LT INF THYROID INADEQUATE, INSUFFICIENT CELLS FOR STUDY. THIS INTERPRETATION INCLUDES EVALUATION OF A CELL BLOCK. COMMENT, POORLY CELLULAR SMEAR WITH FEWER THAN 6 GROUPS OF 10 FOLLICULAR CELLS PRESENT. THE MATERIAL ASPIRATED MAY NOT BE LICENSE AND PERMIT SPECIALIST. SUGGEST CLINICAL CORRELATION. Signed out by: Dashawn Patino MD, Pathologist NPI- [id number] Performed by: Maira [place], Paintings Conservator ([facility]) Gross description: 01 30ML, RED, 1TP, 1CB /LCS 03/31/2020 0703 Local FLAG LEGEND: L-Low Normal,H-High Normal,LL-Alert Low,HH-Alert High <-Panic Low,>-Panic High,A-Abnormal,AA-Critical Abnormal Performed at: [facility] [address] [place] [address] [address] [place] [address] Kash Gastelum MD, JORDAN [address] [address] Charan Mcdaniel MD, Specimen Comment: A courtesy copy of this report has been sent to [phone], [phone] Specimen Comment: [phone], Specimen Comment: Report sent to DR PRUITT,DR MANCIA / DR VYAS Specimen Comment: A duplicate report has been generated due to demographic updates. Performed at: [address], [place], [place] [id number] MD Kash Gastelum MD Phone: [phone]
== END | disposition home or self-care (01) ==
LOC: US 12:26
PROVIDERS: ATTEND Specialist
DX: E04.2 Nontoxic multinodular goiter (principal); E05.80 Other thyrotoxicosis without thyrotoxic crisis or storm; Z79.899 Other long term (current) drug therapy; Z72.89 Other problems related to lifestyle; Z87.891 Personal history of nicotine dependence
CPT/HCPCS: 10005; 10006; 36415; 60300; 76942; 80053; 84436; 84443; 84480; 85025; 88173; 88305

== ENCOUNTER → 2020-06-11 | Outpatient (CLI) | payer MEDICARE, OTHER ==
[2020-06-11 14:05] LABS: BASO % 1 % (0-3); EOS # 0.1 x10^3/uL (0.0-0.7); EOS % 1 % (0-3); HEMATOCRIT 39.3 % (36.0-47.0); HEMOGLOBIN 12.9 g/dL (12.0-15.5); LYMPH # 1.4 x10^3/uL (1.0-4.8); LYMPH % 28 % (24-48); MEAN CORPUSCULAR HEMOGLOBIN 29 pg (25-35); MEAN CORPUSCULAR HGB CONC 33 g/dL (31-37); MEAN CORPUSCULAR VOLUME 87 fL (79-100); MONO # 0.8 x10^3/uL (0.0-1.1); MONO % 15 % (0-9); NEUT # 2.7 x10^3/uL (1.8-7.7); NEUT % 55 % (31-73); PLATELET COUNT 213 x10^3/uL (140-400); RED BLOOD COUNT 4.52 x10^6/uL (3.50-5.40); RED CELL DISTRIBUTION WIDTH 14.3 % (11.5-14.5); WHITE BLOOD COUNT 4.9 x10^3/uL (4.0-11.0)
[2020-06-11 14:33] LABS: FREE T4 3.01 ng/dL (0.76-1.46); PROTHROMBIN TIME PATIENT 13.5 SEC (11.7-14.0)
[2020-06-11 15:09] LABS: THYROID STIM HORMONE (TSH) < 0.007 uIU/mL (0.358-3.74)
--- NOTE | 2020-06-13 11:39 | NUR ---
IP: Called Dr. Umana to inform him of pt's positive COVID test. hew asked me to contact pt and then he would talk with her on Tuesday. Notified pt of positive COVID test and the need to quarantine for 14 days. Also informed her of cancelled OR and Dr Umana would call her on Tuesday. Pt verbalized understanding.
== END ==
LOC: SURGPAT 13:23
PROVIDERS: ATTEND Specialist
DX: Z01.812 Encounter for preprocedural laboratory examination (principal); E04.2 Nontoxic multinodular goiter; Z20.828 Contact with and (suspected) exposure to other viral communicable diseases
CPT/HCPCS: 84439; 84443; 84481; 85025; 85610; U0003

== ENCOUNTER → 2020-07-24 | Outpatient (CLI) | payer MEDICARE, OTHER ==
--- NOTE | 2020-07-23 15:15 | HP ---
ADMIT DATE: HISTORY OF PRESENT ILLNESS: The patient has had hyperthyroidism and has developed a goiter. She is seen by search engine optimization strategist and he suggested that she had the thyroidectomy because of difficulty swallowing and also at times breathing. He has put her on the dose of medicine needed preoperatively and she is taking this. We plan to have this done. PAST MEDICAL HISTORY: Shows normal childhood diseases. She has had many, many years ago a hysterectomy, has also had 2 knee replacements, has had a colostomy with colon resection for sigmoid diverticular rupture. This has been closed. She later had a small-bowel obstruction, which was repaired with enterolysis 2 years ago. She has been doing well since then from that. She also had the knee replacement because of degenerative arthritis of both knees. ALLERGIES: She has no allergies to her knowledge. FAMILY HISTORY: Noncontributory. SOCIAL HISTORY: She smokes about half a pack of cigarettes per day and uses occasionally some marijuana. She drinks only socially. REVIEW OF SYSTEMS: Negative as she has been having some weight loss and some difficulty swallowing at times and also breathing at times at night. PHYSICAL EXAMINATION: GENERAL: Shows an alert female in no acute distress. HEAD, EYES, EARS, NOSE AND THROAT: Grossly normal except for the neck where there was fullness on both sides of the neck with enlarged thyroid. It is not mention before, she has had needle biopsies of the thyroid, which did not show cancer. CHEST: Clear to auscultation bilaterally. HEART: Had a rate of 74 beats per minute and was regular. She does have a systolic murmur about a 3/6 systolic murmur heard mostly at the mitral area. ABDOMEN: Negative except for the scars of previous surgery. No hernias noted. RECTAL AND PELVIC: Not done. EXTREMITIES: Grossly normal except for the scars of the previous knee surgery. IMPRESSION: 1. Hyperthyroidism with goiter and difficulty swallowing and breathing. 2. Status post hysterectomy. 3. Status post degenerative arthritis with bilateral knee replacements. 4. History of intermittent bowel obstruction, which was controlled with the enterolysis. KARLO MANCIA MD DR: ORI/chula JOB#: [id number] / [id number]
== END ==
LOC: LAB 11:43
PROVIDERS: ATTEND Specialist
DX: Z01.812 Encounter for preprocedural laboratory examination (principal); Z20.828 Contact with and (suspected) exposure to other viral communicable diseases
CPT/HCPCS: U0003

== ENCOUNTER 2020-07-28 10:08 | Observation (INO) | payer MEDICARE, OTHER ==
[2020-07-28] VITALS (8 sets, daily range): BP systolic 100–127; BP diastolic 52–73
[~2020-07-28] VITALS: Ht 175.3 cm; Wt 73.8 kg
[~2020-07-28 10:08] MED LIST changes: +0.9 % SODIUM CHLORIDE 20 ML VIAL. IJ ONE; +DEXAMETHASONE SOD PHOS 4 MG/ML VIAL ONE; +HYDROmorphone 2 MG/ML VIAL IV PRN; +IV RINGERS,LACTATED 1000ML 1,000 ML IV SCH; +LIDOCAINE 1% PF 2 ML VIAL. ID PRN; +LIDOCAINE 2% PF 5 ML VIAL. ONE; +MORPHINE SULFATE 2 MG/ML VIAL. IV PRN; +ONDANSETRON PF 4 MG/2 ML VIAL. IV PRN; +ONDANSETRON PF 4 MG/2 ML VIAL. ONE; +PHENYLEPHRINE 10 MG/ML VIAL. ONE; +PROCHLORPERAZINE 10 MG/2 ML VIAL. IV PRN; +PROPOFOL 10 MG/ML (20ML) VIAL. IV ONE; +ROCURONIUM 50 MG/5 ML VIAL. ONE; +SUCCINYLCHOLINE 200 MG/10 ML VIAL. ONE; +fentaNYL PF VIAL 100 MCG/2 ML VIAL IV PRN; +fentaNYL PF VIAL 100 MCG/2 ML VIAL ONE
[2020-07-28] MEDS ORDERED: REMIFENTANIL 1 MG VIAL. IV ONE ×2 (11:07→13:53)
[2020-07-28 11:25] LABS: BASO % 0 % (0-3); EOS % 1 % (0-3); HEMATOCRIT 41.7 % (36.0-47.0); HEMOGLOBIN 13.5 g/dL (12.0-15.5); LYMPH # 1.2 x10^3/uL (1.0-4.8); LYMPH % 28 % (24-48); MEAN CORPUSCULAR HEMOGLOBIN 28 pg (25-35); MEAN CORPUSCULAR HGB CONC 32 g/dL (31-37); MEAN CORPUSCULAR VOLUME 85 fL (79-100); MONO # 0.5 x10^3/uL (0.0-1.1); MONO % 11 % (0-9); NEUT # 2.5 x10^3/uL (1.8-7.7); NEUT % 60 % (31-73); PLATELET COUNT 205 x10^3/uL (140-400); RED BLOOD COUNT 4.91 x10^6/uL (3.50-5.40); RED CELL DISTRIBUTION WIDTH 15.9 % (11.5-14.5); WHITE BLOOD COUNT 4.2 x10^3/uL (4.0-11.0)
[2020-07-28 11:34] LABS: PROTHROMBIN TIME PATIENT 12.8 SEC (11.7-14.0)
[2020-07-28 11:36] LABS: CALCIUM 8.9 mg/dL (8.5-10.1); CREATININE 0.5 mg/dL (0.6-1.0); POTASSIUM 3.6 mmol/L (3.5-5.1)
--- NOTE | 2020-07-28 11:37 | PDOC ---
SURGICAL PROGRESS NOTE DATE: 07/28/20 TIME: 11:36 No change in dictated H&P. Vital Signs Vital Signs Date Time Temp Pulse Resp B/P (MAP) Pulse Ox O2 Delivery O2 Flow Rate FiO2 07/28/20 11:04 97.9 81 20 97 97.9 07/28/20 10:48 153/79 Room Air Labs Laboratory Tests Test 07/28/20 11:05 White Blood Count 4.2 x10^3/uL (4.0-11.0) Red Blood Count 4.91 x10^6/uL (3.50-5.40) Hemoglobin 13.5 g/dL (12.0-15.5) Hematocrit 41.7 % (36.0-47.0) Mean Corpuscular Volume 85 fL (79-100) Mean Corpuscular Hemoglobin 28 pg (25-35) Mean Corpuscular Hemoglobin Concent 32 g/dL (31-37) Red Cell Distribution Width 15.9 % (11.5-14.5) Platelet Count 205 x10^3/uL (140-400) Neutrophils (%) (Auto) 60 % (31-73) Lymphocytes (%) (Auto) 28 % (24-48) Monocytes (%) (Auto) 11 % (0-9) Eosinophils (%) (Auto) 1 % (0-3) Basophils (%) (Auto) 0 % (0-3) Neutrophils # (Auto) 2.5 x10^3/uL (1.8-7.7) Lymphocytes # (Auto) 1.2 x10^3/uL (1.0-4.8) Monocytes # (Auto) 0.5 x10^3/uL (0.0-1.1) Eosinophils # (Auto) 0.0 x10^3/uL (0.0-0.7) Basophils # (Auto) 0.0 x10^3/uL (0.0-0.2) Laboratory Tests Test 07/28/20 11:05 White Blood Count 4.2 x10^3/uL (4.0-11.0) Red Blood Count 4.91 x10^6/uL (3.50-5.40) Hemoglobin 13.5 g/dL (12.0-15.5) Hematocrit 41.7 % (36.0-47.0) Mean Corpuscular Volume 85 fL (79-100) Mean Corpuscular Hemoglobin 28 pg (25-35) Mean Corpuscular Hemoglobin Concent 32 g/dL (31-37) Red Cell Distribution Width 15.9 % (11.5-14.5) Platelet Count 205 x10^3/uL (140-400) Neutrophils (%) (Auto) 60 % (31-73) Lymphocytes (%) (Auto) 28 % (24-48) Monocytes (%) (Auto) 11 % (0-9) Eosinophils (%) (Auto) 1 % (0-3) Basophils (%) (Auto) 0 % (0-3) Neutrophils # (Auto) 2.5 x10^3/uL (1.8-7.7) Lymphocytes # (Auto) 1.2 x10^3/uL (1.0-4.8) Monocytes # (Auto) 0.5 x10^3/uL (0.0-1.1) Eosinophils # (Auto) 0.0 x10^3/uL (0.0-0.7) Basophils # (Auto) 0.0 x10^3/uL (0.0-0.2) Justicifation of Admission Dx: Justifications for Admission: Justification of Admission Dx: Yes KARLO MANCIA MD Jul 28, 2020 11:37
--- NOTE | 2020-07-28 11:40 | PDOC ---
SURGICAL PROGRESS NOTE DATE: 07/28/20 TIME: 11:37 Surgeon..........................................Dong Pre and post op diag.........................goiter with difficulty eating and swallowing and hyperthyroidism Anesthesia.....................................general Procedure......................................thyroidectomy..subtotal Drains...........................................none Blood loss......................................200cc Fluids...........................................see anesthesia sheet Condition.......................................satisfctory Vital Signs Vital Signs Date Time Temp Pulse Resp B/P (MAP) Pulse Ox O2 Delivery O2 Flow Rate FiO2 07/28/20 11:04 97.9 81 20 97 97.9 07/28/20 10:48 153/79 Room Air Labs Laboratory Tests Test 07/28/20 11:05 White Blood Count 4.2 x10^3/uL (4.0-11.0) Red Blood Count 4.91 x10^6/uL (3.50-5.40) Hemoglobin 13.5 g/dL (12.0-15.5) Hematocrit 41.7 % (36.0-47.0) Mean Corpuscular Volume 85 fL (79-100) Mean Corpuscular Hemoglobin 28 pg (25-35) Mean Corpuscular Hemoglobin Concent 32 g/dL (31-37) Red Cell Distribution Width 15.9 % (11.5-14.5) Platelet Count 205 x10^3/uL (140-400) Neutrophils (%) (Auto) 60 % (31-73) Lymphocytes (%) (Auto) 28 % (24-48) Monocytes (%) (Auto) 11 % (0-9) Eosinophils (%) (Auto) 1 % (0-3) Basophils (%) (Auto) 0 % (0-3) Neutrophils # (Auto) 2.5 x10^3/uL (1.8-7.7) Lymphocytes # (Auto) 1.2 x10^3/uL (1.0-4.8) Monocytes # (Auto) 0.5 x10^3/uL (0.0-1.1) Eosinophils # (Auto) 0.0 x10^3/uL (0.0-0.7) Basophils # (Auto) 0.0 x10^3/uL (0.0-0.2) Laboratory Tests Test 07/28/20 11:05 White Blood Count 4.2 x10^3/uL (4.0-11.0) Red Blood Count 4.91 x10^6/uL (3.50-5.40) Hemoglobin 13.5 g/dL (12.0-15.5) Hematocrit 41.7 % (36.0-47.0) Mean Corpuscular Volume 85 fL (79-100) Mean Corpuscular Hemoglobin 28 pg (25-35) Mean Corpuscular Hemoglobin Concent 32 g/dL (31-37) Red Cell Distribution Width 15.9 % (11.5-14.5) Platelet Count 205 x10^3/uL (140-400) Neutrophils (%) (Auto) 60 % (31-73) Lymphocytes (%) (Auto) 28 % (24-48) Monocytes (%) (Auto) 11 % (0-9) Eosinophils (%) (Auto) 1 % (0-3) Basophils (%) (Auto) 0 % (0-3) Neutrophils # (Auto) 2.5 x10^3/uL (1.8-7.7) Lymphocytes # (Auto) 1.2 x10^3/uL (1.0-4.8) Monocytes # (Auto) 0.5 x10^3/uL (0.0-1.1) Eosinophils # (Auto) 0.0 x10^3/uL (0.0-0.7) Basophils # (Auto) 0.0 x10^3/uL (0.0-0.2) Justicifation of Admission Dx: Justifications for Admission: Justification of Admission Dx: Yes KARLO MANCIA MD Jul 28, 2020 11:40
[2020-07-28 11:44] LABS: ALBUMIN 3.8 g/dL (3.4-5.0); ALBUMIN/GLOBULIN RATIO 1.2 (1.0-1.7); TOTAL BILIRUBIN 2.3 mg/dL (0.2-1.0); TOTAL PROTEIN 6.9 g/dL (6.4-8.2)
[2020-07-28 11:49] LABS: FREE T4 1.81 ng/dL (0.76-1.46)
[2020-07-28 11:53] LABS: THYROID STIM HORMONE (TSH) < 0.007 uIU/mL (0.358-3.74)
[2020-07-28] MEDS ORDERED: SEVOFLURANE > 120 MINUTES. IH ONE (12:21)
[2020-07-28] MEDS ORDERED: PROPOFOL 100 ML IV ONE (12:22)
[2020-07-28] MEDS ORDERED: GELATIN SPONGE SIZE 12-7MM SPONGE. ONE (13:47)
[2020-07-28] MEDS ORDERED: THROMBIN TOPICAL 20,000 UNIT SPRAY.SYRN KIT TP ONE ×2 (13:47→15:19)
[2020-07-28] MEDS ORDERED: GELATIN SPONGE SIZE 100. ONE ×2 (13:49→15:18)
[2020-07-28] MEDS ORDERED: fentaNYL PF VIAL 100 MCG/2 ML VIAL ONE ×2 (14:12→16:39)
[2020-07-28] MEDS ORDERED: PROPOFOL 50 ML IV ONE (14:30)
[2020-07-28] MEDS: fentaNYL PF VIAL 100 MCG/2 ML VIAL IV PRN ×2 (16:43→16:49)
[2020-07-28] MEDS ORDERED: NALOXONE 0.4 MG/ML VIAL. IV PRN (16:45)
[2020-07-28] MEDS ORDERED: 0.9 % SODIUM CHLORIDE 10 ML DISP.SYRIN. IV PRN (16:45)
[2020-07-28] MEDS ORDERED: IV NORMAL SALINE 1000ML BAG 1,000 ML IV SCH (16:45)
[2020-07-28] MEDS: POTASSIUM CL 20MEQ-0.45% NACL 1,000 ML IV SCH (16:45)
[2020-07-28] MEDS ORDERED: HYDROcodone/APAP 7.5/325MG 1 TAB TABLET PO PRN (17:15)
[2020-07-28] MEDS ORDERED: DOCUSATE SODIUM 100 MG CAPSULE. PO SCH (21:00)
[2020-07-28] MEDS ORDERED: FAMOTIDINE 20 MG/2 ML VIAL IVP SCH (21:00)
[2020-07-28] MEDS ORDERED: HYDROcodone/APAP 10/325 1 TAB TABLET PO PRN (22:45)
[2020-07-28] MEDS ORDERED: diazePAM 2 MG TABLET PO PRN (22:45)
[2020-07-29 00:41] VITALS: BP 98/65
[2020-07-29] MEDS: POTASSIUM CL 20MEQ-0.45% NACL 1,000 ML IV SCH (00:45)
[2020-07-29 01:40] VITALS: BP 108/59
[2020-07-29 03:17] VITALS: BP 105/56
[2020-07-29 07:00] VITALS: BP 122/65
[2020-07-29 07:37] LABS: BASO % 0 % (0-3); EOS % 0 % (0-3); HEMATOCRIT 32.4 % (36.0-47.0); HEMOGLOBIN 10.5 g/dL (12.0-15.5); LYMPH # 0.6 x10^3/uL (1.0-4.8); LYMPH % 11 % (24-48); MEAN CORPUSCULAR HEMOGLOBIN 28 pg (25-35); MEAN CORPUSCULAR HGB CONC 33 g/dL (31-37); MEAN CORPUSCULAR VOLUME 85 fL (79-100); MONO # 0.5 x10^3/uL (0.0-1.1); MONO % 10 % (0-9); NEUT # 4.1 x10^3/uL (1.8-7.7); NEUT % 79 % (31-73); PLATELET COUNT 176 x10^3/uL (140-400); RED CELL DISTRIBUTION WIDTH 16.1 % (11.5-14.5); WHITE BLOOD COUNT 5.2 x10^3/uL (4.0-11.0)
[2020-07-29 08:02] LABS: ALBUMIN/GLOBULIN RATIO 1.1 (1.0-1.7); CALCIUM 8.3 mg/dL (8.5-10.1); CREATININE 0.5 mg/dL (0.6-1.0); POTASSIUM 4.6 mmol/L (3.5-5.1); TOTAL BILIRUBIN 1.4 mg/dL (0.2-1.0); TOTAL PROTEIN 5.7 g/dL (6.4-8.2)
--- NOTE | 2020-07-29 09:07 | HP ---
ADMIT DATE: 07/28/2020 HISTORY OF PRESENT ILLNESS: The patient has had hyperthyroidism and has developed a goiter. She is seen by braille and talking books clerk and he suggested that she had the thyroidectomy because of difficulty swallowing and also at times breathing. He has put her on the dose of medicine needed preoperatively and she is taking this. We plan to have this done. PAST MEDICAL HISTORY: Shows normal childhood diseases. She has had many, many years ago a hysterectomy, has also had 2 knee replacements, has had a colostomy with colon resection for sigmoid diverticular rupture. This has been closed. She later had a small-bowel obstruction, which was repaired with enterolysis 2 years ago. She has been doing well since then from that. She also had the knee replacement because of degenerative arthritis of both knees. ALLERGIES: She has no allergies to her knowledge. FAMILY HISTORY: Noncontributory. SOCIAL HISTORY: She smokes about half a pack of cigarettes per day and uses occasionally some marijuana. She drinks only socially. REVIEW OF SYSTEMS: Negative as she has been having some weight loss and some difficulty swallowing at times and also breathing at times at night. PHYSICAL EXAMINATION: GENERAL: Shows an alert female in no acute distress. HEAD, EYES, EARS, NOSE AND THROAT: Grossly normal except for the neck where there was fullness on both sides of the neck with enlarged thyroid. It is not mention before, she has had needle biopsies of the thyroid, which did not show cancer. CHEST: Clear to auscultation bilaterally. HEART: Had a rate of 74 beats per minute and was regular. She does have a systolic murmur about a 3/6 systolic murmur heard mostly at the mitral area. ABDOMEN: Negative except for the scars of previous surgery. No hernias noted. RECTAL AND PELVIC: Not done. EXTREMITIES: Grossly normal except for the scars of the previous knee surgery. IMPRESSION: 1. Hyperthyroidism with goiter and difficulty swallowing and breathing. 2. Status post hysterectomy. 3. Status post degenerative arthritis with bilateral knee replacements. 4. History of intermittent bowel obstruction, which was controlled with the enterolysis. KARLO MANCIA MD DR: ORI/chula JOB#: [id number] / [id number] JAYSON
--- NOTE | 2020-07-29 09:40 | OP ---
DATE OF SURGERY: SURGEON: Alex Mancia MD PREOPERATIVE DIAGNOSIS: Hyperthyroidism with goiter. POSTOPERATIVE DIAGNOSIS: Hyperthyroidism with goiter. ANESTHESIA: General. PROCEDURE: Thyroidectomy, mostly subtotal. TECHNIQUE: Under general anesthesia, the patient was properly prepped and draped in a routine fashion. An incision was made following the skin lines on the anterior portion of the neck. It went from the sternocleidomastoid muscle on both directions. We did this with a 15 blade and went through the skin. The platysma was divided using cautery. We then, in the midline, saw a large vein and kept this to the right as we slowly dissected the middle of the neck and could see the division between the muscles. We then used Metzenbaum scissors to go under the platysma and up to the larynx. We carried this, undermined it and small bleeders were cauterized and inferiorly, we went down to the sternum. We then went under the deep strap muscle on the right and there was a goiter, which did not appear large, but it did extend inferiorly and superiorly. We went around this. Luckily, we did not divide the strap muscles during the procedure, we thought we might, but we did not have to. We then identified the vein coming in laterally and tied it on both sides and then divided it. The inferior thyroidal vessels were likewise tied. We stayed close to the thyroid as she had had biopsies and there was no evidence of cancer. She did, however, have a lot of trouble swallowing and sometimes breathing and this is why the procedure was done after she had been seen for some years by the foundry superintendant and he also suggested surgery. At any rate, the superior pole went quite high and we divided the larger vessels after they had been tied with 2-0 and 0 silk sutures. A similar dissection was also done with the Harmonic scalpel and it should be noted that the gland had a large cyst on that side, which was ruptured, what made the procedure easier, but she did have a lot of bleeding and every time you touch the thyroid, there was a lot of bleeding and this took time. We slowly identified that portion and got a small portion of the thyroid, leaving it next to the trachea laterally and this made it less likely for us to damage the recurrent laryngeal nerve and reflected it medially. It was fairly large at the right and as such, we decided to divide the isthmus and send this gland in formalin for pathology. We then did a similar procedure on the left side, which was somewhat more difficult as the gland went superiorly high than most thyroids do. We undermined the strap muscles and got into the fascia on the gland and likewise divided these vessels, it was somewhat difficult as there was so much bleeding. It should be noted that we did see the parathyroid on this side, but did not biopsy it. We did not look for the other parathyroids as we stayed close to the gland. We were able to mobilize this thyroid and likewise divide the vein laterally, superiorly and inferiorly, rotated medially dividing the small bit next to the trachea. We divided this with the cautery. We then pulled the gland up and divided it from the trachea. We did not injure the esophagus or the trachea and also a small bleeder in the superior portion was suture ligated. We then placed Gelfoam with thrombin in both sides and let them stay twice. There was no further bleeding. Because of all the bleeding we had had, we decided to put a drain in it. We put a 15 Arpit drain into the neck and sutured it in place using 2-0 silk suture and we brought it inferior to the incision. The area was inspected. There was no further bleeding and the platysma was approximated using interrupted 4-0 Vicryl and the skin was then closed using 5-0 and 6-0 nylon sutures. Sterile dressing was applied and the procedure was terminated. The blood loss was about 300 mL. Fluids given can be obtained from the anesthesia sheet. No drains were used and the condition of the patient was satisfactory as she has returned to the recovery room. It should be noted that postoperatively in the recovery room, she had no bleeding and no had normal voice. ALEX MANCIA MD DR: ORI/chula JOB#: [id number] / [id number] JAYSON
--- NOTE | 2020-07-29 09:52 | NUR ---
SW following. Discussed with RN, pt from home with family, room air, clear liquid diet. Pt had surgery on 07/28/20. RN advised no SW needs and anticipates discharge home today. SW will continue to follow.
[2020-07-29 11:00] VITALS: BP 93/61
--- NOTE | 2020-07-29 11:38 | PDOC ---
SURGICAL PROGRESS NOTE DATE: 07/29/20 TIME: 11:35 POD #1 Doing well with no pain and no output of the drain in over 12 hours. Alert and with normal voice and states to swallow much better than pre op. Lab noted and Hct down due to blood loss and hydration. I hungry and has no fever. Dressing changed and there is no hematoma and the wound is clean and dry and the drain is removed without problems. Home today and will call if there are any problems. Will see in office POD#7. Vital Signs Vital Signs Date Time Temp Pulse Resp B/P (MAP) Pulse Ox O2 Delivery O2 Flow Rate FiO2 07/29/20 07:00 98.6 82 18 122/65 (84) 95 Room Air 98.6 07/28/20 16:49 10.0 I&O Intake and Output 07/29/20 07:00 Intake Total 2150 ml Output Total 930 ml Balance 1220 ml Intake Oral 850 ml IV Total 1300 ml Output Urine Total 400 ml Drainage Total 30 ml Estimated Blood Loss 500 ml # Voids 4 Labs Laboratory Tests Test 07/28/20 11:05 07/29/20 07:00 White Blood Count 4.2 x10^3/uL (4.0-11.0) 5.2 x10^3/uL (4.0-11.0) Red Blood Count 4.91 x10^6/uL (3.50-5.40) 3.80 x10^6/uL (3.50-5.40) Hemoglobin 13.5 g/dL (12.0-15.5) 10.5 g/dL (12.0-15.5) Hematocrit 41.7 % (36.0-47.0) 32.4 % (36.0-47.0) Mean Corpuscular Volume 85 fL (79-100) 85 fL (79-100) Mean Corpuscular Hemoglobin 28 pg (25-35) 28 pg (25-35) Mean Corpuscular Hemoglobin Concent 32 g/dL (31-37) 33 g/dL (31-37) Red Cell Distribution Width 15.9 % (11.5-14.5) 16.1 % (11.5-14.5) Platelet Count 205 x10^3/uL (140-400) 176 x10^3/uL (140-400) Neutrophils (%) (Auto) 60 % (31-73) 79 % (31-73) Lymphocytes (%) (Auto) 28 % (24-48) 11 % (24-48) Monocytes (%) (Auto) 11 % (0-9) 10 % (0-9) Eosinophils (%) (Auto) 1 % (0-3) 0 % (0-3) Basophils (%) (Auto) 0 % (0-3) 0 % (0-3) Neutrophils # (Auto) 2.5 x10^3/uL (1.8-7.7) 4.1 x10^3/uL (1.8-7.7) Lymphocytes # (Auto) 1.2 x10^3/uL (1.0-4.8) 0.6 x10^3/uL (1.0-4.8) Monocytes # (Auto) 0.5 x10^3/uL (0.0-1.1) 0.5 x10^3/uL (0.0-1.1) Eosinophils # (Auto) 0.0 x10^3/uL (0.0-0.7) 0.0 x10^3/uL (0.0-0.7) Basophils # (Auto) 0.0 x10^3/uL (0.0-0.2) 0.0 x10^3/uL (0.0-0.2) Prothrombin Time 12.8 SEC (11.7-14.0) Prothromb Time International Ratio 1.0 (0.8-1.1) Sodium Level 144 mmol/L (136-145) 142 mmol/L (136-145) Potassium Level 3.6 mmol/L (3.5-5.1) 4.6 mmol/L (3.5-5.1) Chloride Level 107 mmol/L (98-107) 109 mmol/L (98-107) Carbon Dioxide Level 24 mmol/L (21-32) 24 mmol/L (21-32) Anion Gap 13 (6-14) 9 (6-14) Blood Urea Nitrogen 11 mg/dL (7-20) 8 mg/dL (7-20) Creatinine 0.5 mg/dL (0.6-1.0) 0.5 mg/dL (0.6-1.0) Estimated GFR (Cockcroft-Gault) 148.0 148.0 BUN/Creatinine Ratio 22 (6-20) 16 (6-20) Glucose Level 71 mg/dL (70-99) 138 mg/dL (70-99) Calcium Level 8.9 mg/dL (8.5-10.1) 8.3 mg/dL (8.5-10.1) Total Bilirubin 2.3 mg/dL (0.2-1.0) 1.4 mg/dL (0.2-1.0) Aspartate Amino Transf (AST/SGOT) 17 U/L (15-37) 13 U/L (15-37) Alanine Aminotransferase (ALT/SGPT) 17 U/L (14-59) 15 U/L (14-59) Alkaline Phosphatase 79 U/L (46-116) 54 U/L (46-116) Total Protein 6.9 g/dL (6.4-8.2) 5.7 g/dL (6.4-8.2) Albumin 3.8 g/dL (3.4-5.0) 3.0 g/dL (3.4-5.0) Albumin/Globulin Ratio 1.2 (1.0-1.7) 1.1 (1.0-1.7) Thyroid Stimulating Hormone (TSH) < 0.007 uIU/mL (0.358-3.74) < 0.007 uIU/mL (0.358-3.74) Free Thyroxine 1.81 ng/dL (0.76-1.46) Total Triiodothyronine 359 ng/dL (71-180) Free Triiodothyronine (T3) pg/mL 2.85 pg/mL (2.18-3.98) Laboratory Tests Test 07/29/20 07:00 White Blood Count 5.2 x10^3/uL (4.0-11.0) Red Blood Count 3.80 x10^6/uL (3.50-5.40) Hemoglobin 10.5 g/dL (12.0-15.5) Hematocrit 32.4 % (36.0-47.0) Mean Corpuscular Volume 85 fL (79-100) Mean Corpuscular Hemoglobin 28 pg (25-35) Mean Corpuscular Hemoglobin Concent 33 g/dL (31-37) Red Cell Distribution Width 16.1 % (11.5-14.5) Platelet Count 176 x10^3/uL (140-400) Neutrophils (%) (Auto) 79 % (31-73) Lymphocytes (%) (Auto) 11 % (24-48) Monocytes (%) (Auto) 10 % (0-9) Eosinophils (%) (Auto) 0 % (0-3) Basophils (%) (Auto) 0 % (0-3) Neutrophils # (Auto) 4.1 x10^3/uL (1.8-7.7) Lymphocytes # (Auto) 0.6 x10^3/uL (1.0-4.8) Monocytes # (Auto) 0.5 x10^3/uL (0.0-1.1) Eosinophils # (Auto) 0.0 x10^3/uL (0.0-0.7) Basophils # (Auto) 0.0 x10^3/uL (0.0-0.2) Sodium Level 142 mmol/L (136-145) Potassium Level 4.6 mmol/L (3.5-5.1) Chloride Level 109 mmol/L (98-107) Carbon Dioxide Level 24 mmol/L (21-32) Anion Gap 9 (6-14) Blood Urea Nitrogen 8 mg/dL (7-20) Creatinine 0.5 mg/dL (0.6-1.0) Estimated GFR (Cockcroft-Gault) 148.0 BUN/Creatinine Ratio 16 (6-20) Glucose Level 138 mg/dL (70-99) Calcium Level 8.3 mg/dL (8.5-10.1) Total Bilirubin 1.4 mg/dL (0.2-1.0) Aspartate Amino Transf (AST/SGOT) 13 U/L (15-37) Alanine Aminotransferase (ALT/SGPT) 15 U/L (14-59) Alkaline Phosphatase 54 U/L (46-116) Total Protein 5.7 g/dL (6.4-8.2) Albumin 3.0 g/dL (3.4-5.0) Albumin/Globulin Ratio 1.1 (1.0-1.7) Thyroid Stimulating Hormone (TSH) < 0.007 uIU/mL (0.358-3.74) Free Triiodothyronine (T3) pg/mL 2.85 pg/mL (2.18-3.98) Justicifation of Admission Dx: Justifications for Admission: Justification of Admission Dx: Yes KARLO MANCIA MD Jul 29, 2020 11:38
--- NOTE | 2020-07-29 11:45 | DISCH ---
DISCHARGE INSTRUCTIONS Condition on Discharge Condition on Discharge: Stable Activity After Discharge Activity Instructions for Disc: Activity as tolerated Bathing Instructions: Shower-keep dressing dry, No Tub Bath until see Lifting Instructions after Dis: No heavy lifting, No pulling or pushing, Do not lift >10 pounds Driving Instructions after Dis: Do not drive today Weight Bearing Status after Di: As tolerated Diet after Discharge Diet after Discharge: Epes, Regular Wound Incision Care Wound/Incision Care: Ice to area for comfort, Keep wound/cast CDI Wound Care Equipment: Dressings Follow-Up Follow up with: Dr. Mancia in 7 days...call and make appt Treatment/Equipment after DC Adaptive Equipment Issued: None KARLO MANCIA MD Jul 29, 2020 11:45
--- NOTE | 2020-07-29 16:58 | DS ---
DATE OF DISCHARGE: 07/29/2020 The patient was discharged on 07/29/2020. HISTORY AND HOSPITAL COURSE: The patient had been on thyroid medicine for about 30-40 years and had been seen an property management specialist. The property management specialist thought she needed to have the thyroid removed as it was getting larger and also she was beginning to have difficulty swallowing and at times breathing. As such, on 07/28/2020, she had a subtotal thyroidectomy, which was eventful and that she did have quite a bit of bleeding during the surgery as she may have been hyperthyroid. Laboratory tests were not available preop. At any rate, she has done well postoperatively. Her hematocrit was about 33 and she is alert, cooperative, not weak and doing well. She has no pain. She can swallow much better than prior to surgery. Her calcium was acceptable, in view of the albumin was not particularly low and she had no white count elevation and was doing well. She demanded to go home and she had no difficulties and the drain that was placed, had put out no drainage for the past 12-18 hours. She demanded to go home and as such, we removed the drain and let her go home. She had no bleeding and with no swelling in the neck. The wound was doing well and she was able to take p.o. fluids without problems and also eat. As such, she is discharged. She was given instructions and I will see her on postop day #7 and she will call should she have any problems in the interim. We will repeat her labs at that time and including calcium. She was given instructions on no strenuous activity. She will be given Percodan for pain medicine. She did have a history of some liver disorder and therefore Percodan was used. IMPRESSION: 1. Toxic nodular goiter. 2. Heart murmur, etiology not determined. 3. Status post perforated diverticulum and sigmoid colon many years ago. 4. Status post bilateral knee replacements. KARLO MANCIA MD DR: ORI/chula JOB#: [id number] / [id number]
--- NOTE | 2020-08-01 09:01 | PATHOLOGY ---
[facility] Accession Number: [id number] . 01 Material submitted: . PART A: thyroid gland - INFERIOR POLE LONG STITCH LEFT THYROID. Modifiers: left PART B: thyroid gland - INFERIOR POLE STITCH RIGHT THYROID. Modifiers: right . 02 Diagnosis: A. Thyroid lobe, left thyroid lobectomy: - Adenomatous nodules, multiple, the largest measuring 2.7 cm in greatest dimension, showing focal cystic degeneration and hemorrhage (lobe weight 17 grams). - No parathyroid glands identified. . B. Thyroid lobe, right thyroid lobectomy: - Adenomatous nodules, multiple, the largest measuring 5.8 cm in greatest dimension, showing focal cystic degeneration and hemorrhage (lobe weight 55 grams). - No parathyroid glands identified. LBQ 07/31/2020 1659 Local . 02 Comment: There is no evidence of malignancy. (JPM/db; 07/31/2020) . 02 Electronically signed: . Franco Cifuentes MD, Pathologist NPI- [id number] . 01 Gross description: . A. The specimen is received in formalin, labeled "Selene Fortune, inferior pole long stitch left thyroid". Received is a 17 g oriented thyroid lobe measuring 5.7 x 3.2 x 2.6 cm in greatest dimensions. The capsule is severely disrupted in appearance. The specimen is inked black. Sectioning reveals multiple pale albright to white-albright nodules ranging in size from 0.5 to 2.7 cm in maximum dimensions, all of which grossly abut the inked capsule. The nodules display solid to cystic/hemorrhagic components. A slight amount of normal red-brown thyroid parenchyma is identified. Alternating sections are submitted from superior to inferior aspects in cassettes A1 through A6. . B. The specimen is received in formalin, labeled "Selene Fortune, inferior pole stitch right thyroid". Received is a 55 g oriented thyroid lobe measuring 9.5 x 4.2 x 3.3 cm in greatest dimensions. The capsule is disrupted and roughened in appearance. The specimen is inked blue. Sectioning reveals multiple pale albright to white-albright nodules ranging in size from 0.6 to 5.8 cm in maximum dimensions, most of which grossly abut the inked capsule. The nodules display solid to hemorrhagic components. A slight amount of normal red-brown thyroid parenchyma is identified. The specimen is submitted representatively from superior to inferior aspects in cassettes B1 through B10. (CAA; 07/30/2020) QAC/QAC 07/30/2020 1357 Local . 02 Pathologist provided ICD-10: E04.1 . 02 CPT . 510224, 101522 Specimen Comment: A duplicate report has been generated due to demographic updates. Performed at: 01 [facility] [address] [id number] MD Dashawn Patino MD Phone: [phone] Performed at: 02 [facility] [address] [place], [place] [id number] MD Franco Cifuentes MD Phone: [phone]
== END 2020-07-29 14:47 | disposition home or self-care (01) ==
LOC: SURG 10:08 → 4 NORTH 17:04
PROVIDERS: ADMIT Specialist; ATTEND Specialist
DX: E05.20 Thyrotoxicosis with toxic multinodular goiter without thyrotoxic crisis or storm (principal); M19.90 Unspecified osteoarthritis, unspecified site; E03.9 Hypothyroidism, unspecified; K56.609 Unspecified intestinal obstruction, unspecified as to partial versus complete obstruction; F17.210 Nicotine dependence, cigarettes, uncomplicated; R01.1 Cardiac murmur, unspecified; M17.0 Bilateral primary osteoarthritis of knee; Z90.710 Acquired absence of both cervix and uterus; Z96.653 Presence of artificial knee joint, bilateral; Z93.3 Colostomy status; Z79.899 Other long term (current) drug therapy; Z98.890 Other specified postprocedural states
CPT/HCPCS: 36415; 60252; 80053; 84436; 84439; 84443; 84480; 84481; 85025; 85610; 88307; 96361; 96374; G0378; G0379; J0330; J1100; J2370; J2405; J2704; J3010; J3480; J3490; J7120

== ENCOUNTER → 2020-12-22 | Day surgery (SDC) | payer MEDICARE, OTHER ==
[~2020-12-22] MED LIST changes: -0.9 % SODIUM CHLORIDE 20 ML VIAL. IJ ONE; -DEXAMETHASONE SOD PHOS 4 MG/ML VIAL ONE; -HYDROmorphone 2 MG/ML VIAL IV PRN; -IV RINGERS,LACTATED 1000ML 1,000 ML IV SCH; -LIDOCAINE 1% PF 2 ML VIAL. ID PRN; +LIDOCAINE 1%/EPI 1:100,000 20 ML VIAL. INJ ONE; +LIDOCAINE 1%/EPI 1:100,000 20 ML VIAL. ONE; -LIDOCAINE 2% PF 5 ML VIAL. ONE; -MORPHINE SULFATE 2 MG/ML VIAL. IV PRN; -ONDANSETRON PF 4 MG/2 ML VIAL. IV PRN; -ONDANSETRON PF 4 MG/2 ML VIAL. ONE; -PHENYLEPHRINE 10 MG/ML VIAL. ONE; -PROCHLORPERAZINE 10 MG/2 ML VIAL. IV PRN; -PROPOFOL 10 MG/ML (20ML) VIAL. IV ONE; -ROCURONIUM 50 MG/5 ML VIAL. ONE; -SUCCINYLCHOLINE 200 MG/10 ML VIAL. ONE; -fentaNYL PF VIAL 100 MCG/2 ML VIAL IV PRN; -fentaNYL PF VIAL 100 MCG/2 ML VIAL ONE
[2020-12-22 10:45] VITALS: BP 142/73
--- NOTE | 2020-12-22 12:07 | PDOC ---
SURGICAL PROGRESS NOTE DATE: 12/22/20 TIME: 12:04 Subjective op Note: Surgeon....................................Dong Pre and post op diag..................Mass left axilla Anesthesia...............................1% lidocaine with epi Procedure................................exc m,ass 4cm with margins left axilla Drains......................................none Fluids.....................................none Blood loss...............................3cc Conditin...................................satisfactory Justicifation of Admission Dx: Justifications for Admission: Justification of Admission Dx: Yes KARLO MANCIA MD Dec 22, 2020 12:07
--- NOTE | 2020-12-22 12:16 | DISCH ---
DISCHARGE INSTRUCTIONS Condition on Discharge Condition on Discharge: Stable Activity After Discharge Activity Instructions for Disc: Activity as tolerated, Avoid exertion Bathing Instructions: Shower-keep dressing dry, No Tub Bath until see Lifting Instructions after Dis: No heavy lifting Exercise Instruction after Dis: Progress as tolerated Driving Instructions after Dis: Do not drive Weight Bearing Status after Di: As tolerated Diet after Discharge Diet after Discharge: Regular Additional Diet Restrictions: resume pre op diat Wound Incision Care Wound/Incision Care: Change dressing Other wound/incision instructi: keep wound dry and clean Wound Care Equipment: Dressings Follow-Up Follow up with: see Dr. Mancia in 2 weeks Treatment/Equipment after DC Adaptive Equipment Issued: None KARLO MANCIA MD Dec 22, 2020 12:16
--- NOTE | 2020-12-22 23:15 | OP ---
DATE OF SURGERY: 12/22/2020 SURGEON: Alex Umana MD PREOPERATIVE DIAGNOSIS: Tumor, left axilla. POSTOPERATIVE DIAGNOSIS: Tumor, left axilla. ANESTHESIA: 1% lidocaine with epinephrine. PROCEDURE: Excision of mass, left axilla. TECHNIQUE: Under general anesthesia, the patient was properly prepped and draped in routine fashion. We used Betadine solution. We kept her field sterile during the procedure and we inspected the area and there was a 3cm mass in the subQ in the left axilla. As such, we made an incision in the skin and to get around the mass and the tissue around it, so that we would get it completely out, we had margins of at least 0.5 cm in all directions. The incision was made with a 15 blade. We then identified the mass, pulled the tissues around it up and then using Metzenbaum scissors cut it away from the surrounding tissues. We stayed well away from the mass getting the margins as described. This having been done, there was 1 small bleeder, which was controlled with pressure. The resultant defect was inspected and 4-0 Vicryl was used to close the deeper subcutaneous and then in a layered fashion the more superficial subcutaneous. The skin was closed using a subcuticular 5-0 Vicryl. The procedure was then terminated as sterile dressing was applied. The blood loss was probably about 3 mL. Fluids given were none. No drains were used and the condition of the patient is satisfactory as she has returned to the holding area, given instructions. ORI/KRYSTYNA/LARS DR: Pavel TID: [id number] JAYSON
--- NOTE | 2020-12-25 09:09 | PATHOLOGY ---
[facility] Accession Number: [id number] . 01 Material submitted: . axilla - LEFT AXILLARY MASS. Modifiers: left . 01 Clinical history: . EXCISION MASS LEFT AXILLA . 02 Diagnosis: Skin and subcutaneous tissue, left axillary mass, excision: - Epidermal inclusion cyst. . ([facility]:mm; 12/24/2020) [facility] 12/24/2020 1644 Local . 02 Comment: There is no evidence of malignancy. . ([facility]:mm; 12/24/2020) . 02 Electronically signed: . Franco Cifuentes MD, Pathologist NPI- [id number] . 01 Gross description: . Received in formalin labeled "Selene Fortune, left axillary mass" is an intact albright-white cystic structure with an attached ellipse of albright-brown skin measuring entirely 3.0 x 1.8 x 1.5 cm. Upon sectioning, the cyst contains albright-white amorphous material. Director Of Trauma tissue is submitted in cassette A1. ([facility]; 12/23/2020) [facility] 12/23/2020 1857 Local . 02 Pathologist provided ICD-10: L72.0 . 02 CPT . 173175 Specimen Comment: A courtesy copy of this report has been sent to [phone], [phone] Specimen Comment: [id number] Specimen Comment: Report sent to / DR VYAS Performed at: 01 [facility] [address] [address], [place] [id number] MD Dashawn Patino MD Phone: [phone] Performed at: 02 [facility] [address] [place], [place] [id number] MD Franco Cifuentes MD Phone: [phone]
--- NOTE | 2021-01-01 10:25 | HP ---
ADMIT DATE: 12/22/2020 HISTORY OF PRESENT ILLNESS: The patient is known to me as she has had a number of surgeries. Now, she presents with a mass of the left axilla. It has been there for some time. It is enlarging and causing her some pain now. She saw her primary care doctor and he suggested having it removed. PAST MEDICAL HISTORY: Shows normal childhood diseases. She has had surgery before and that she has had a perforated diverticulum with a colostomy, which has been closed and also has had sigmoid colon resection, and also has had a thyroidectomy done recently. She has also had bilateral knee replacements. She also has had a hysterectomy many years ago. MEDICATIONS: She has been on thyroid medicine for many years for hyperthyroidism, not now as she had her thyroid removed, but does take Synthroid 0.75 mcg a day. Otherwise, she is doing well and takes no medication. ALLERGIES: None. SOCIAL HISTORY: She drinks socially. Does not use illicit drugs and does not smoke. PHYSICAL EXAMINATION: GENERAL: Shows an alert female, in no acute distress. HEAD, EYES, EARS, NOSE, AND THROAT: Grossly normal. CHEST: Clear bilaterally. HEART: Had a murmur, about 3/6 systolic murmur, but she has had it for years and the rest unremarkable. AXILLA: She does have a mass of the axilla, which was about 2-3 cm in size. It was not tender, not red, but definitely a mass there. BREASTS: She had no history of breast pathology and mammograms have been negative. EXTREMITIES: Grossly negative. ABDOMEN: Negative except for the scars of previous surgery. IMPRESSION: Hypothyroidism post-surgery and mass of the left axilla. LISBET/JITENDRA DR: Pavel TID: [id number]
== END | disposition home or self-care (01) ==
LOC: SURG 10:32
PROVIDERS: ATTEND Specialist
DX: L72.0 Epidermal cyst (principal); K21.9 Gastro-esophageal reflux disease without esophagitis; M19.90 Unspecified osteoarthritis, unspecified site; E03.9 Hypothyroidism, unspecified; F17.210 Nicotine dependence, cigarettes, uncomplicated; Z90.710 Acquired absence of both cervix and uterus; Z98.890 Other specified postprocedural states
CPT/HCPCS: 11404; 88304; J3490

== ENCOUNTER → 2021-07-13 | Outpatient (CLI) | payer MEDICARE, OTHER ==
[2020-12-22 10:45] VITALS: BP 142/73
[~2021-07-13] MED LIST changes: +IOHEXOL 240 MG/ML 50ML VIAL. PO ONE; +IOHEXOL 300 MG/ML 100ML VIAL. IV ONE; -LIDOCAINE 1%/EPI 1:100,000 20 ML VIAL. INJ ONE; -LIDOCAINE 1%/EPI 1:100,000 20 ML VIAL. ONE; -METH-364 PO; +METH10TA32 PO
[2021-07-13 15:44] LABS: CREATININE 0.7 mg/dL (0.6-1.0); GFR 100.1
--- NOTE | 2021-07-13 17:14 | RAD ---
EXAM: CT ABDOMEN/PELVIS WITH CONTRAST. HISTORY: Small bowel obstruction. TECHNIQUE: Computed tomography of the abdomen and pelvis was performed after the intravenous administ ration of iodinated contrast. One or more of the following individualized dose reduction techniques w ere utilized for this examination: 1. Automated exposure control. 2. Adjustment of the mA and/or kV according to patient size. 3. Use of iterative reconstruction technique. COMPARISON: 08/31/2018. FINDINGS: Lung windows through the visualized portions of the bases reveal mild atelectasis. The hear t appears mildly enlarged. 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 There is grade 1 anterolisthesis at L4-5 from facet osteoart hritis. The liver, gallbladder, pancreas and spleen are unremarkable. Benign left renal cysts measure up to 1 7 mm. The left adrenal gland is thickened without a discrete mass. There are no pathologically enlarg ed lymph nodes. The uterus is surgically absent. There are changes of pelvic floor relaxation with a small cystocele. There is no evidence of appendicitis. Colonic wall thickening is at least moderate along the left col on and mild more proximally. There is an anastomotic suture line along the sigmoid colon. The more di stal colon does not appear involved. There is no clear small bowel wall thickening. There is no small bowel obstruction. The central mesenteric vasculature is widely patent. IMPRESSION: 1. Left greater than right colonic wall thickening is consistent with colitis. Ischemic, infectious o r inflammatory etiologies are possible in this distribution. 2. Pelvic floor relaxation with a small cystocele. 3. Mild cardiomegaly. Electronically signed by: Anselmo Thomas MD (07/13/2021 5:12 PM) [id number]
== END ==
LOC: CT 15:03
PROVIDERS: ATTEND Specialist
DX: K63.89 Other specified diseases of intestine (principal); N81.10 Cystocele, unspecified; I51.7 Cardiomegaly; J98.11 Atelectasis; N28.1 Cyst of kidney, acquired; M43.16 Spondylolisthesis, lumbar region; M47.816 Spondylosis without myelopathy or radiculopathy, lumbar region; Z90.710 Acquired absence of both cervix and uterus
CPT/HCPCS: 36415; 74177; 82565; 84520; Q9966; Q9967